=== PATIENT | male | born 1955 | race African-American/Black ===

== ENCOUNTER → 2016-08-21 | Outpatient (CLI) | payer MEDICAID ==
[2015-11-01 13:33] VITALS: BP 190/100
== END ==
LOC: LAB 08:08
PROVIDERS: ATTEND Nurse Practitioner Family
DX: F20.89 Other schizophrenia (principal)
CPT/HCPCS: 36415; 80164

== ENCOUNTER 2016-12-16 20:15 | Emergency (ER) | payer MEDICAID ==
[2016-12-16 20:22] VITALS: BMI 29.9
--- NOTE | 2016-12-16 20:31 | DR.GENAD ---
HPI - PCP Primary Care Physician: megan Arnold HPI Comment HPI Comment: NO FEVER. PAIN WORSE TONIGHT. - Complaint/Symptoms Chief Complaint Doctors Comments: NECK PAIN, SORE THROAT AND UPPER CHEST PAIN. ALSO LT CLAVICLE PAIN. Chief Complaint:: neck pain - Nurses notes reviewed Nurses Notes Review: Yes - Source History Provided: Patient - Mode of Arrival Mode of Arrival: Ambulatory - Timing Onset of Chief Complaint: 11/16/16 Came on: Suddenly - Duration Duration: Constant Duration: Days - Severity Severity: Moderate PMH - PMH Past Medical History: Yes Past Medical History: Coronary Artery Disease, Diabetes, Hypertension, Seizures Past Medical History Comment: family states he is on mental health medications Past Surgical History: No - Family History History of Family Medical Conditions: Yes Family Medical History: Diabetes Mellitus, Cancer, [place], Coronary Artery Disease, Heart Failure, Sudden Cardiac , Hypertension - Social History Does patient currently use any type of tobacco product: Yes Have you used tobacco products in the last 12 months: No Type of Tobacco Use: Smokeless Does any household member use tobacco: No Alcohol Use: None Do you use any recreational Drugs:: No Lives With: Family Lives Where: Home - infectious screening In the last 2 months have you had wt loss of >10#?: NO Have you had fever, night sweats or hemotysis?: No Have you traveled outside the country in the last 6 months?: No Isolation: Standard ROS - Review of Systems Constitutional: No Symptoms Reported Eyes: No Symptoms Reported ENTM: Throat Pain. negative: Ear Pain, Nose Discharge, Nose Congestion Respiratoy: Non-Productive Cough. negative: Short of Breath, Wheezing, Hemoptysis Cardiovascular: Chest Pain, Other (UPPER CHST PAIN) Gastrointestinal/Abdominal: No Symptoms Reported Genitourinary: No Symptoms Reported Neurological: No Symptoms Reported Musculoskeletal: Neck Pain, Chest wall Integumentary: No Symptoms Reported Hematologic/Lymphatic: No Symptoms Reported Endocrine: No Symptoms Reported All Other Systems: Reviewed and Negative PE - Vital Signs Vitals: Temperature 98.7 F Pulse Rate [Right] 77 Pulse Rate 115 Respiratory Rate 16 Blood Pressure [Left Arm] 132/76 Blood Pressure [Right Arm] 160/100 Blood Pressure 132/78 O2 Sat by Pulse Oximetry 100 - General Limitations: No Limitations General Appearance: Alert - Head Head Exam: Normal Inspection - Eyes Eye exam: Normal Appearance - ENT ENT Exam: Normal External Ear Exam External Ear Exam: Normal External Inspection TM/Canal Exam: Bilateral Normal Nose Exam: Normal Nose Exam Mouth Exam: Normal Inspection Throat Exam: Tonsillar Erythema - Neck Neck Exam: Trachea Midline, Tenderness (LOWER LEFT NEDK AND LT CLAVICLE.) - Chest Chest Inspection: Symmetric Chest Wall Rise - Respiratory Respiratory Exam: Normal Lung Sounds Bilat Respiratory Exam: Bilateral Clear to Auscultation - Cardiovascular Cardiovascular Exam: Regular Rate, Normal Rhythm, Normal Heart Sounds - Abdominal Exam Abdominal Exam: Normal Bowel Sounds, Soft. negative: Tenderness - Extremities Extremities Exam: Normal Inspection - Back Back Exam: Normal Inspection - Neurologic Neurological Exam: Alert, Oriented X3 - Psychiatric Psychiatric Exam: Normal Affect, Normal Mood - Skin Skin Exam: Normal Color MDM - Differential Diagnosis Differential Diagnosis: NECK PAIN, UPPER CHEST PAIN, STREP THROAT, ARTHRITIS Course - Treatment Treatment: SEE ORDERS. IM TORADOL, PAIN IMPROVE. - Reevaluation 1st: Improved - Education/Counseling Education/Counseling: Patient, Education Educated On: Treatment, Diagnosis, Needs for Follow Up ROR - Labs Reviewed Laboratory Results Reviewed?: Yes Laboratory: Streptococcus Screen Positive (NEGATIVE) A 12/16/16 20:44 - XRAY XRAY Interpreted by: Radiologist XRAY Findings: REPORT DISCUSS WITH PATIENT. - Diagnosis Discharge Problem: Strep throat, Neck pain DJD (degenerative joint disease) Qualifiers: Osteoarthritis location: multiple joints Osteoarthritis type: unspecified Qualified Code(s): M15.9 - Polyosteoarthritis, unspecified - Discharge Plan Disposition: HOME, SELF-CARE Condition: Stable Prescriptions: Amoxicillin [Amoxil 875 mg] 875 mg PO Q12H #20 tab Ibuprofen [MOTRIN TAB 800 MG *] 800 mg PO Q8H PRN #20 tab PRN Reason: Pain/Inflammation - Follow ups/Referrals Follow ups/Referrals: Edi MILLAN [Primary Care Provider] - 3 days - Instructions Instructions: Strep Throat, [id number], Degenerative Disk Disease, Smokeless Tobacco Use Additional Instructions: RETURN TO ED IF WORSE.
[2016-12-16] MEDS ORDERED: TORADOL 60 MG VIAL IM ONE (20:41)
[2016-12-16] MEDS ORDERED: TORADOL 60 MG VIAL ONE (20:46)
--- NOTE | 2016-12-16 21:25 | RAD ---
HISTORY: Neck pain with no trauma Study: Five view cervical spine Comparison: None Findings: AP and lateral radiographs of the cervical spine demonstrate normal alignment from the craniocervical junction to the level of T1. Degenerative disc changes are noted throughout the cervical spine with anterior osteophytes at all levels and joint space narrowing most notably at C5-6.. No prevertebral soft tissue swelling can be identified. The odontoid appears intact. The lateral masses of C1 align with the body of C2. IMPRESSION: 1. Advanced degenerative changes as above. Consider follow-up MRI if symptoms persist. Reported By:
--- NOTE | 2016-12-16 21:27 | RAD ---
HISTORY: Chest pain Study: Single-view chest Comparison: None Findings: The trachea is midline. The cardiac silhouette is unremarkable. The lungs are clear without focal i nfiltrate or effusion. The bony thorax is unremarkable. IMPRESSION: 1. No acute cardiopulmonary disease. Reported By:
[2016-12-16] MEDS ORDERED: AMOXIL CAP 500 MG PO ONE ×2 (21:41→21:42)
[2016-12-16 21:53] VITALS: BP 132/76
== END 2016-12-16 21:50 | disposition home or self-care (01) ==
LOC: ER 20:15
DX: M54.2 Cervicalgia (principal); J02.0 Streptococcal pharyngitis; M15.9 Polyosteoarthritis, unspecified
CPT/HCPCS: 71010; 72050; 87880; 96372; 99282; 99283; J1885

== ENCOUNTER → 2017-04-11 | Outpatient (CLI) | payer MEDICAID ==
[2017-04-11 12:26] LABS: BASOPHILS % (AUTO) 0.9 % (0.2-1.0); EOSINOPHILS % (AUTO) 0.6 % (0.9-2.9); HEMATOCRIT 43.2 % (42.0-54.0); HEMOGLOBIN 14.5 g/dL (13.5-18.0); LYMPHOCYTES # (AUTO) 1.8 X10^3/uL (1.3-2.9); MEAN CORPUSCULAR HEMOGLOBIN 30.3 pg (27.0-34.0); MEAN CORPUSCULAR HGB CONC 33.5 g/dL (33.0-35.0); MEAN CORPUSCULAR VOLUME 90.5 fL (80.0-100.0); MEAN PLATELET VOLUME 8.1 fL (7.4-11.0); MONOCYTES # (AUTO) 0.8 x10^3/uL (0.3-0.8); MONOCYTES % (AUTO) 17.3 % (0.0-13.0); NEUTROPHILS # (AUTO) 2.1 x10^3/uL (2.2-4.8); NEUTROPHILS % (AUTO) 44.2 % (42.0-75.0); PLATELET COUNT 171 X10^3/uL (150.0-450.0); RED BLOOD COUNT 4.77 X10^6/uL (4.7-6.0); RED CELL DISTRIBUTION WIDTH 14.9 % (11.6-16.5); WHITE BLOOD COUNT 4.8 X10^3/uL (3.6-10.0)
[2017-04-11 12:49] LABS: VALPROIC ACID 68.1 ug/mL (50-100)
[2017-04-11 12:54] LABS: ALANINE AMINOTRANSFERASE 33 Units/L (12-78); ALBUMIN 3.5 g/dL (3.4-5.0); ALKALINE PHOSPHATASE 34 Units/L (46-116); ASPARTATE AMINO TRANSFERASE 25 Units/L (15-37); BLOOD UREA NITROGEN 17 mg/dL (7-18); CALCIUM 9.5 mg/dL (8.5-10.1); CHLORIDE 101 mmol/L (98-107); COR NA(FOR HYPERGLY) 140 mmol/L (136-145); CREATININE 1.97 mg/dL (0.70-1.30); SODIUM 137 mmol/L (136-145); TOTAL PROTEIN 8.6 g/dL (6.4-8.2); TSH (3RD GENERATION) 2.089 uIU/mL (0.358-3.74); eGFR BLACK RACES 44 (>60); eGFR NON BLACK RACES 37 (>60)
== END ==
LOC: LAB 12:01
PROVIDERS: ATTEND Nurse Practitioner Family
DX: Z79.899 Other long term (current) drug therapy (principal)
CPT/HCPCS: 36415; 80053; 80164; 84443; 85025

== ENCOUNTER 2021-05-17 08:49 | Inpatient (IN) ==
[2021-05-17] MEDS ORDERED: CARDIZEM INJ 50 MG VIAL ONE (08:56)
[2021-05-17] MEDS ORDERED: CARDIZEM INJ 50 MG VIAL IVP ONE ×2 (09:01→09:32)
[2021-05-17 09:07] LABS: BASOPHILS % (AUTO) 0.3 % (0.2-1.0); EOSINOPHILS % (AUTO) 0.1 % (0.9-2.9); HEMATOCRIT 27.2 % (42.0-54.0); HEMOGLOBIN 9.2 g/dL (13.5-18.0); LYMPHOCYTES # (AUTO) 0.8 X10^3/uL (1.3-2.9); MEAN CORPUSCULAR HEMOGLOBIN 28.7 pg (27.0-34.0); MEAN CORPUSCULAR HGB CONC 33.8 g/dL (33.0-35.0); MEAN CORPUSCULAR VOLUME 84.7 fL (80.0-100.0); MEAN PLATELET VOLUME 6.4 fL (7.4-11.0); MONOCYTES # (AUTO) 1.1 x10^3/uL (0.3-0.8); MONOCYTES % (AUTO) 7.3 % (0.0-13.0); NEUTROPHILS # (AUTO) 13.2 x10^3/uL (2.2-4.8); NEUTROPHILS % (AUTO) 87.3 % (42.0-75.0); RED BLOOD COUNT 3.21 X10^6/uL (4.7-6.0); RED CELL DISTRIBUTION WIDTH 15.9 % (11.6-16.5); WHITE BLOOD COUNT 15.2 X10^3/uL (3.6-10.0)
--- NOTE | 2021-05-17 09:18 | RAD ---
HISTORYChest painSTUDYChest AP portableCOMPARISONNoneFINDINGSHeart is minimally enlarged. No congestive heart failure is noted. No acute alveolar infiltrates or pleural effusions are identified. Bony thorax is unremarkable.IMPRESSIONNo significant abnormality identifiedElectronically signed by: ELROY THOMAS (May 17, 2021 09:17:27)
[2021-05-17 09:28] LABS: ALANINE AMINOTRANSFERASE 12 Units/L (12-78); ALKALINE PHOSPHATASE 91 Units/L (46-116); ASPARTATE AMINO TRANSFERASE 14 Units/L (15-37); BLOOD UREA NITROGEN 9 mg/dL (7-18); CALCIUM 8.1 mg/dL (8.5-10.1); CARBON DIOXIDE 25.1 mmol/L (21-32); CHLORIDE 99 mmol/L (98-107); CKMB % 1.1 % (<4); COR CA(FOR HYPOALB) 9.7 mg/dL (8.5-10.1); CREATINE KINASE 88 Units/L (39-308); CREATINE KINASE MB < 1.0 ng/mL (0-4.0); CREATININE 0.57 mg/dL (0.70-1.30); MAGNESIUM 1.8 mg/dL (1.7-2.9); SODIUM 133 mmol/L (136-145); TOTAL PROTEIN 7.3 g/dL (6.4-8.2); eGFR NON BLACK RACES > 60 (>60)
--- NOTE | 2021-05-17 09:47 | DR.GENAD ---
HPI Time Seen Time Seen by Provider: 05/17/21 09:12 PCP Primary Care Physician: Yvonne HPI Comment HPI Comment: A 66 y/o male presssenting via EMS with c/o rapid HR. He denies SOB or C/P. He is not saying much but speaks few words. Complaint/Symptoms Chief Complaint:: EMS states caregiver called 911 due to patient having elevated heart rate. Pt has history of AFIB. Pt c/o pain to sacral area. Bleeding noted from wound. Pt answers some questions but will not answer every question. Limited history obtained at this time. COVID-19 Coronavirus risk:travel/contact w/high risk person: No Has patient experienced Coronavirus symptoms: No Nurses notes reviewed Nurses Notes Review: Yes Source History Provided: Patient and EMS Mode of Arrival Mode of Arrival: Stretcher Timing Onset of Chief Complaint: 05/17/21 PMH PMH Past Medical History: Yes Past Medical History: Diabetes and Hypertension Past Medical History Comment: AFIB Past Surgical History: Yes Surgical History: No History Past Surgical History Comment: amputation to bilateral legs Family History History of Family Medical Conditions: Yes Family Medical History: Diabetes Mellitus Social History Do you use any recreational Drugs:: No Travel Risk Coronavirus risk:travel/contact w/high risk person: No Has patient experienced Coronavirus symptoms: No Infectious screening In the last 2 months have you had wt loss of >10#?: NO Have you had fever, night sweats or hemotysis?: No Have you traveled outside the country in the last 6 months?: No Isolation: Standard ROS Review of Systems Constitutional: No Symptoms Reported Eyes: No Symptoms Reported ENTM: No Symptoms Reported Respiratoy: No Symptoms Reported Cardiovascular: Palpitations Gastrointestinal/Abdominal: No Symptoms Reported Genitourinary: No Symptoms Reported Neurological: No Symptoms Reported Musculoskeletal: No Symptoms Reported Integumentary: No Symptoms Reported Hematologic/Lymphatic: No Symptoms Reported Endocrine: No Symptoms Reported Psychiatric: No Symptoms Reported PE Vital Signs Vitals: Temperature 99.8 F Pulse Rate 154 Respiratory Rate 24 Blood Pressure [Left Arm] 158/76 Blood Pressure [Right Arm] 172/93 Blood Pressure 162/107 O2 Sat by Pulse Oximetry 100 General Limitations: No Limitations General Appearance: Alert and In No Apparent Distress Head Head Exam: Normal Inspection, Atraumatic and Normocephalic Eyes Eye exam: Normal Appearance, PERRL and EOMI ENT ENT Exam: Normal Exam, Normal Oropharynx, Normal External Ear Exam and TM's Normal Bilaterally Neck Neck Exam: Normal Inspection, Full ROM and Trachea Midline Chest Chest Inspection: Normal Inspection and Symmetric Chest Wall Rise Respiratory Respiratory Exam: Normal Lung Sounds Bilat Cardiovascular Cardiovascular Exam: Regular Rate, Normal Rhythm, Normal Heart Sounds, +S1 and +S2 Abdominal Exam Abdominal Exam: Normal Inspection, Normal Bowel Sounds and Soft Extremities Extremities Exam: Full ROM and Other (s/p Rt. AKA and Lt. BKA. ) Back Back Exam: Normal Inspection and Full ROM Neurologic Neurological Exam: Alert and Oriented X3 Psychiatric Psychiatric Exam: Normal Affect, Normal Mood and Depressed Skin Skin Exam: Other (moderate side decub on Lt. buttock.) COURSE Reevaluation 1st: Improved Education/Counseling Education/Counseling: Patient, Family, Education and Counseling Educated On: Treatment, Diagnosis, Prognosis and Needs for Follow Up Critical Care Notes Total Time (mins): 30 Critical Diagnosis: Paroxysmal SVT, Uncontrolled HTN Critical Interventions: Administration of IV Cardizem Bolus, supplemental Oxygen, diagnostic tests, Cardizem drip ROR Labs Reviewed Result Diagrams: 05/17/21 08:59 05/17/21 08:59 Laboratory: WBC 15.2 X10^3/uL (3.6-10.0) H 05/17/21 08:59 RBC 3.21 X10^6/uL (4.7-6.0) L 05/17/21 08:59 Hgb 9.2 g/dL (13.5-18.0) L 05/17/21 08:59 Hct 27.2 % (42.0-54.0) L 05/17/21 08:59 MCV 84.7 fL (80.0-100.0) 05/17/21 08:59 MCH 28.7 pg (27.0-34.0) 05/17/21 08:59 MCHC 33.8 g/dL (33.0-35.0) 05/17/21 08:59 RDW 15.9 % (11.6-16.5) 05/17/21 08:59 Plt Count 259 X10^3/uL (150.0-450.0) 05/17/21 08:59 MPV 6.4 fL (7.4-11.0) L 05/17/21 08:59 Neut % (Auto) 87.3 % (42.0-75.0) H 05/17/21 08:59 Lymph % (Auto) 5.0 % (21.0-51.0) L 05/17/21 08:59 [place] % (Auto) 7.3 % (0.0-13.0) 05/17/21 08:59 Eos % (Auto) 0.1 % (0.9-2.9) L 05/17/21 08:59 Baso % (Auto) 0.3 % (0.2-1.0) 05/17/21 08:59 Neut # (Auto) 13.2 x10^3/uL (2.2-4.8) H 05/17/21 08:59 Lymph # (Auto) 0.8 X10^3/uL (1.3-2.9) L 05/17/21 08:59 [place] # (Auto) 1.1 x10^3/uL (0.3-0.8) H 05/17/21 08:59 Eos # (Auto) 0.0 x10^3/uL (0.0-0.2) 05/17/21 08:59 Baso # (Auto) 0.0 X10^3/uL (0.0-0.1) 05/17/21 08:59 Absolute Nucleated RBC 0.0 /100WBC 05/17/21 08:59 PT 17.4 SECONDS (11.8-14.3) 05/17/21 08:59 INR Target Range - 05/17/21 08:59 INR 1.50 (0.8-1.3) H 05/17/21 08:59 APTT 54.7 SECONDS (22.9-36.5) H 05/17/21 08:59 PTT Comment - 05/17/21 08:59 Sodium 133 mmol/L (136-145) L 05/17/21 08:59 Corrected Sodium TNP 05/17/21 08:59 Potassium 3.6 mmol/L (3.5-5.1) 05/17/21 08:59 Chloride 99 mmol/L (98-107) 05/17/21 08:59 Carbon Dioxide 25.1 mmol/L (21-32) 05/17/21 08:59 BUN 9 mg/dL (7-18) 05/17/21 08:59 Creatinine 0.57 mg/dL (0.70-1.30) L 05/17/21 08:59 Est GFR (MDRD) Af Amer > 60 (>60) 05/17/21 08:59 Est GFR (MDRD) Non-Af > 60 (>60) 05/17/21 08:59 Glucose 72 mg/dL (65-99) 05/17/21 08:59 Lactic Acid 1.0 mmol/L (0.4-2.0) 05/17/21 09:26 Calcium 8.1 mg/dL (8.5-10.1) L 05/17/21 08:59 Corrected Calcium 9.7 mg/dL (8.5-10.1) 05/17/21 08:59 Magnesium 1.8 mg/dL (1.7-2.9) 05/17/21 08:59 Total Bilirubin 0.40 mg/dL (0.2-1.0) 05/17/21 08:59 AST 14 Units/L (15-37) L 05/17/21 08:59 ALT 12 Units/L (12-78) 05/17/21 08:59 Alkaline Phosphatase 91 Units/L (46-116) 05/17/21 08:59 Creatine Kinase 88 Units/L (39-308) 05/17/21 08:59 CK-MB (CK-2) < 1.0 ng/mL (0-4.0) 05/17/21 08:59 CK/CKMB % Calc 1.1 % (<4) 05/17/21 08:59 Troponin I High Sens 19.3 ng/L (4.0-60.0) 05/17/21 08:59 Total Protein 7.3 g/dL (6.4-8.2) 05/17/21 08:59 Albumin 2.0 g/dL (3.4-5.0) L 05/17/21 08:59 Globulin 5.3 g/dL (2.5-4.5) H 05/17/21 08:59 Albumin/Globulin Ratio 0.4 Ratio (1.1-2.1) L 05/17/21 08:59 TSH 3rd Generation 0.594 uIU/mL (0.358-3.74) 05/17/21 09:26 Digoxin 0.39 ng/mL (0.9-2) L 05/17/21 09:26 Opioid Opioid Risk Tool Age (Alec box if 16-45): No History of Preadolescent Sexual Abuse: No Total: 0 Total Score Risk Category: Low Risk Copyright: [facility] predicting aberrant behaviors Diagnosis Discharge Problem: Paroxysmal SVT (supraventricular tachycardia), Uncontrolled hypertension Diabetes mellitus Qualifiers: Diabetes mellitus type: type 2 Diabetes mellitus bed bug exterminator insulin use: without bed bug exterminator use Diabetes mellitus complication status: with circulatory complication Diabetes mellitus complication detail: with other circulatory complications Qualified Code(s): E11.59 - Type 2 diabetes mellitus with other circulatory complications Atrial fibrillation Qualifiers: Atrial fibrillation type: paroxysmal Qualified Code(s): I48.0 - Paroxysmal atrial fibrillation ADDITIONAL NOTES Additional Notes Additional Notes: Name: SHANNAN DUMONT#: [id number]: [id number] : 1955Sex: MLocation: ER Order Number(s): [id number](s):CHEST, 1 VIEW Ordering Physician: JESICA CHAMBERS Primary Care: Ellen Walls Service Date: 05/17/21 Service Time: 08 HISTORY Chest pain STUDY Chest AP portable COMPARISON None FINDINGS Heart is minimally enlarged. No congestive heart failure is noted. No acute alveolar infiltrates or pleural effusions are identified. Bony thorax is unremarkable. IMPRESSION No significant abnormality identified Electronically signed by: ELROY THOMAS (May 17, 2021 09:17:27) Report Electronically signed: 05/17/21917 CC: Jesica Chambers
[2021-05-17] MEDS: CARDIZEM INJ 125 MG VIAL 125 MG in NS 100 ML IV 100 ML IV PRN ×2 (09:48→17:12)
[2021-05-17 10:11] LABS: TSH (3RD GENERATION) 0.594 uIU/mL (0.358-3.74)
[2021-05-17 12:18] VITALS: BMI 19.8
[2021-05-17] MEDS ORDERED: LANOXIN INJ IVP STA (13:49)
[2021-05-17] MEDS ORDERED: CARDIZEM CD 180 MG 24-HR PO STA (13:52)
[2021-05-17] MEDS ORDERED: NS 1,000 ML IV 1,000 ML IV ONE (13:55)
[2021-05-17] MEDS ORDERED: LANOXIN INJ IVP SCH (14:00)
[2021-05-17] MEDS ORDERED: LANOXIN INJ IVP ONE (14:32)
--- NOTE | 2021-05-17 15:34 | DR.H&P ---
H&P History & Physical for Day of: H&P Date: 05/17/21 Chief Complaint Chief Complaint: elevated HR Allergies Allergies Allergy/AdvReac Type Severity Reaction Status Date / Time No Known Drug Allergies Allergy Verified 12/21/19 12:19 History of Present Illness History of Present Illness: Mr Sanchez is a 66y/o male with a PMH of diabetes, atrial fibrillation, bilateral above knee amputation, HTN and mood disorder presented due to elevated HR. Patient's home health nurse noticed patient's HR to be elevated so he was sent to the ER. Patient is not able to provide any history. He answered some direct questions by nodding head or saying yes/no. Patient's history was obtained from patient's . She states he has been doing well and not feeling sick. He did see wound care on Saturday for his sacral wound and was told it is looking better. She states it has been draining and has a foul odor. Patient has had this wound for a while now and sees wound care in [facility]. In the ER, patient was noted to be in atrial fibrillation with RVR. He was given multiple doses of cardizem and digoxin. He was started on Cardizem drip. Labs/imaging reviewed Plan: admit to telemetry, monitor HR. Consult Dr Zapata for further recommendations. Wean cardizem if HR stays below 100. Patient is currently on max dose. He denies any sx. Resume home medications. Echo pending. Order wound Cx. Monitor AM labs/imaging. Past Medical History Past Medical History: Diabetes, Dyslipidemia, Hypertension and Schizophrenia Additional Medical History: Atrial fibrillation Past Surgical History Surgical History: Other Additional Surgical History: b/l knee amputation Family History Family Medical History: Diabetes Mellitus Social History Does patient currently use any type of tobacco product: Yes (Occasional Dip) Have you used tobacco products in the last 12 months: Yes (Dip) Alcohol Use: None Prescription drug monitoring program results: PDMP reviewed and no concerns identified Medications Home Medications: No Known Drug Allergies Allergy (Verified 12/21/19 12:19) CONTINUE taking the following medications apixaban [Eliquis] 5 mg PO BID 05/17/21 [History] clopidogrel 75 mg PO DAILY 05/17/21 [History] digoxin 125 mcg PO DAILY 05/17/21 [History] fluphenazine HCl 10 mg PO BID 05/17/21 [History] hydralazine 100 mg PO DAILY 05/17/21 [History] lisinopril 20 mg PO DAILY 05/17/21 [History] multivitamin [One-A-Day Essential] 1 tab PO QAM 05/17/21 [History] risperidone 0.5 mg PO BID 05/17/21 [History] Labs Result Diagrams: 05/18/21 04:00 05/18/21 04:00 Labs: Laboratory WBC 15.2 X10^3/uL (3.6-10.0) H 05/17/21 08:59 RBC 3.21 X10^6/uL (4.7-6.0) L 05/17/21 08:59 Hgb 9.2 g/dL (13.5-18.0) L 05/17/21 08:59 Hct 27.2 % (42.0-54.0) L 05/17/21 08:59 MCV 84.7 fL (80.0-100.0) 05/17/21 08:59 MCH 28.7 pg (27.0-34.0) 05/17/21 08:59 MCHC 33.8 g/dL (33.0-35.0) 05/17/21 08:59 RDW 15.9 % (11.6-16.5) 05/17/21 08:59 Plt Count 259 X10^3/uL (150.0-450.0) 05/17/21 08:59 MPV 6.4 fL (7.4-11.0) L 05/17/21 08:59 Neut % (Auto) 87.3 % (42.0-75.0) H 05/17/21 08:59 Lymph % (Auto) 5.0 % (21.0-51.0) L 05/17/21 08:59 [place] % (Auto) 7.3 % (0.0-13.0) 05/17/21 08:59 Eos % (Auto) 0.1 % (0.9-2.9) L 05/17/21 08:59 Baso % (Auto) 0.3 % (0.2-1.0) 05/17/21 08:59 Neut # (Auto) 13.2 x10^3/uL (2.2-4.8) H 05/17/21 08:59 Lymph # (Auto) 0.8 X10^3/uL (1.3-2.9) L 05/17/21 08:59 [place] # (Auto) 1.1 x10^3/uL (0.3-0.8) H 05/17/21 08:59 Eos # (Auto) 0.0 x10^3/uL (0.0-0.2) 05/17/21 08:59 Baso # (Auto) 0.0 X10^3/uL (0.0-0.1) 05/17/21 08:59 Absolute Nucleated RBC 0.0 /100WBC 05/17/21 08:59 PT 17.4 SECONDS (11.8-14.3) 05/17/21 08:59 INR Target Range - 05/17/21 08:59 INR 1.50 (0.8-1.3) H 05/17/21 08:59 APTT 54.7 SECONDS (22.9-36.5) H 05/17/21 08:59 PTT Comment - 05/17/21 08:59 D-Dimer 1.05 ug/ml (0.0-0.57) H* 05/17/21 08:59 Sodium 133 mmol/L (136-145) L 05/17/21 08:59 Corrected Sodium TNP 05/17/21 08:59 Potassium 3.6 mmol/L (3.5-5.1) 05/17/21 08:59 Chloride 99 mmol/L (98-107) 05/17/21 08:59 Carbon Dioxide 25.1 mmol/L (21-32) 05/17/21 08:59 BUN 9 mg/dL (7-18) 05/17/21 08:59 Creatinine 0.57 mg/dL (0.70-1.30) L 05/17/21 08:59 Est GFR (MDRD) Af Amer > 60 (>60) 05/17/21 08:59 Est GFR (MDRD) Non-Af > 60 (>60) 05/17/21 08:59 Glucose 72 mg/dL (65-99) 05/17/21 08:59 POC Glucose (mg/dL) 89 mg/dL (65-99) 05/17/21 12:03 Lactic Acid 1.0 mmol/L (0.4-2.0) 05/17/21 09:26 Calcium 8.1 mg/dL (8.5-10.1) L 05/17/21 08:59 Corrected Calcium 9.7 mg/dL (8.5-10.1) 05/17/21 08:59 Magnesium 1.8 mg/dL (1.7-2.9) 05/17/21 08:59 Total Bilirubin 0.40 mg/dL (0.2-1.0) 05/17/21 08:59 AST 14 Units/L (15-37) L 05/17/21 08:59 ALT 12 Units/L (12-78) 05/17/21 08:59 Alkaline Phosphatase 91 Units/L (46-116) 05/17/21 08:59 Creatine Kinase 88 Units/L (39-308) 05/17/21 08:59 CK-MB (CK-2) < 1.0 ng/mL (0-4.0) 05/17/21 08:59 CK/CKMB % Calc 1.1 % (<4) 05/17/21 08:59 Troponin I High Sens 19.3 ng/L (4.0-60.0) 05/17/21 08:59 Total Protein 7.3 g/dL (6.4-8.2) 05/17/21 08:59 Albumin 2.0 g/dL (3.4-5.0) L 05/17/21 08:59 Globulin 5.3 g/dL (2.5-4.5) H 05/17/21 08:59 Albumin/Globulin Ratio 0.4 Ratio (1.1-2.1) L 05/17/21 08:59 TSH 3rd Generation 0.594 uIU/mL (0.358-3.74) 05/17/21 09:26 Digoxin 0.39 ng/mL (0.9-2) L 05/17/21 09:26 SARS CoV-2 RNA Rapid GIBSON Negative (NEGATIVE) 05/17/21 10:29 Review of Systems Constitutional: No Symptoms Reported Eyes: No Symptoms Reported ENT: No Symptoms Reported Respiratory: No Symptoms Reported Cardiovascular: No Symptoms Reported Gastrointestinal: No Symptoms Reported Genitourinary: No Symptoms Reported Musculoskeletal: No Symptoms Reported Skin: No Symptoms Reported Neurological: No Symptoms Reported Physical Exam Vital Signs: Temperature 98.3 F Pulse Rate [Left Radial] 150 Pulse Rate 100 Respiratory Rate 25 Blood Pressure [Left Arm] 156/84 Blood Pressure [Right Arm] 172/93 Blood Pressure 144/77 O2 Sat by Pulse Oximetry 99 Oriented: Normal, Person and Place Eyes: Normal Ear: Normal Nose: Normal Throat: Normal Respiratory: Diminished Throughout Cardiovascular: Tachycardia and Irregular : Other (sacral wound noted, dressing intact ) Auscultation: Bowel Sounds: Normal Palpation: Normal Tenderness: Normal Skin: Decreased Turgur Musculoskeletal: Deformity (b/l BKA ) Psychiatric: Normal Mood Description: Calm Affect: Flat Speech Pattern: Clear and Delayed Assessment/Plan (1) Atrial fibrillation with rapid ventricular response: Status: Acute (2) Diabetes mellitus: Qualifiers: Diabetes mellitus complication detail: with other circulatory compli cations Diabetes mellitus complication status: with circulatory complication Diabetes mellitus tank terminal gauger insulin use: without jail use Diabetes mellitus type: type 2 Qualified Code(s): E11.59 - Type 2 diabetes mellitus with other circulatory complications Status: Acute (3) Anemia: Qualifiers: Anemia type: other cause Other causes of anemia: other cause, not classified Qualified Code(s): D64.89 - Other specified anemias Status: Acute (4) S/P bilateral above knee amputation: Status: Acute (5) Sacral wound: Qualifiers: Encounter type: sequela Qualified Code(s): S31.000S - Unspecified open wound of lower back and pelvis without penetration into retroperitoneum, sequela Status: Acute (6) DJD (degenerative joint disease): Qualifiers: Osteoarthritis location: multiple joints Osteoarthritis type: unspecified Qualified Code(s): M15.9 - Polyosteoarthritis, unspecified Status: Acute Review H&P Reviewed: Yes Patient was examined?: Yes
[2021-05-17 15:39] LABS: BILIRUBIN,URINE NEGATIVE (NEGATIVE); BLOOD/HEMOGLOBIN,URINE 1+ (NEGATIVE); GLUCOSE, URINE NEGATIVE (NEGATIVE); KETONES,URINE 2+ (NEGATIVE); LEUKOCYTE ESTERASE ,URINE NEGATIVE (NEGATIVE); NITRITES,URINE NEGATIVE (NEGATIVE); PROTEIN,URINE 2+ (NEGATIVE); UROBILINOGEN,URINE 2+ (NORMAL)
[2021-05-17 15:50] LABS: APPEARANCE,URINE CLEAR (CLEAR); COLOR,URINE AMBER (YELLOW)
[2021-05-17 15:54] LABS: BACTERIA,URINE TRACE /HPF (NEGATIVE); SQUAMOUS EPITHELIAL CELL,UR RARE /HPF (NEGATIVE)
[2021-05-17 15:55] LABS: SPERM,URINE RARE /HPF (NEGATIVE)
--- NOTE | 2021-05-17 15:56 | CT ---
CTA CHESTCLINICAL INDICATION: ELEVATED DDIMERPROCEDURE: Non gated axial images of the chest were obtained with intravenous contrast according to pulmonary embolism protocol. MIPS were reconstructed Dose reduction techniques including Automated Exposure Control (AEC) and adjustment of mA and kV were utlized.COMPARISON:NoneFINDINGS:No evidence of a pulmonary embolism to the level of the segmental pulmonary arteries.Cardiomegaly and severe coronary calcification. No pericardial effusion . No suspicious mediastinal or axillary lymph nodes . No focal consolidations, pleural effusions or pneumothorax.Scarring of the lung bases.Airways are patent . No suspicious pulmonary nodules or masses .Limited images of the upper abdomen are unremarkable.No aggressive osseous lesions.IMPRESSION:1. No evidence of pulmonary embolism.Electronically signed by: RANDAL CABEZAS (May 17, 2021 15:55:53)
[2021-05-17 17:46] LABS: CKMB % 0.3 % (<4); CREATINE KINASE MB < 1.0 ng/mL (0-4.0)
[2021-05-17 17:47] LABS: CREATINE KINASE 369 Units/L (39-308)
[2021-05-17] MEDS: SNACK - Diabetic Appropriate PO SCH (20:16)
[2021-05-17] MEDS ORDERED: DEPAKOTE D.R. TAB PO ONE (20:18)
[2021-05-17] MEDS: APRESOLINE TAB 25 MG PO SCH (20:28)
[2021-05-17] MEDS: ELIQUIS PO SCH (20:28)
[2021-05-17] MEDS: DEPAKOTE D.R. TAB PO SCH (20:28)
[2021-05-17] MEDS: FLUPHENAZINE HCL 10 MG PO SCH (20:29)
[2021-05-17] MEDS: GLUCOPHAGE PO SCH (20:30)
[2021-05-17 22:51] LABS: CKMB % 1.2 % (<4); CREATINE KINASE 84 Units/L (39-308); CREATINE KINASE MB < 1.0 ng/mL (0-4.0)
[2021-05-18] MEDS ORDERED: CARDIZEM INJ 125 MG VIAL ONE (03:24)
[2021-05-18] MEDS ORDERED: NS 100 ML IV 100 ML ONE (03:57)
[2021-05-18] MEDS: CARDIZEM INJ 125 MG VIAL 125 MG in NS 100 ML IV 100 ML IV PRN (04:12)
[2021-05-18 04:51] LABS: BASOPHILS % (AUTO) 0.1 % (0.2-1.0); HEMATOCRIT 25.2 % (42.0-54.0); HEMOGLOBIN 8.5 g/dL (13.5-18.0); LYMPHOCYTES # (AUTO) 0.9 X10^3/uL (1.3-2.9); LYMPHOCYTES % (AUTO) 6.8 % (21.0-51.0); MEAN CORPUSCULAR HEMOGLOBIN 28.5 pg (27.0-34.0); MEAN CORPUSCULAR HGB CONC 33.6 g/dL (33.0-35.0); MEAN CORPUSCULAR VOLUME 84.7 fL (80.0-100.0); MEAN PLATELET VOLUME 6.9 fL (7.4-11.0); MONOCYTES % (AUTO) 7.2 % (0.0-13.0); NEUTROPHILS # (AUTO) 11.7 x10^3/uL (2.2-4.8); NEUTROPHILS % (AUTO) 85.9 % (42.0-75.0); RED BLOOD COUNT 2.98 X10^6/uL (4.7-6.0); RED CELL DISTRIBUTION WIDTH 15.8 % (11.6-16.5); WHITE BLOOD COUNT 13.6 X10^3/uL (3.6-10.0)
[2021-05-18 05:19] LABS: ALANINE AMINOTRANSFERASE 11 Units/L (12-78); ALBUMIN 1.7 g/dL (3.4-5.0); ALKALINE PHOSPHATASE 83 Units/L (46-116); ASPARTATE AMINO TRANSFERASE 23 Units/L (15-37); BLOOD UREA NITROGEN 6 mg/dL (7-18); CALCIUM 7.8 mg/dL (8.5-10.1); CARBON DIOXIDE 26.1 mmol/L (21-32); CHLORIDE 103 mmol/L (98-107); CHOL/HDL RATIO 3.3 (0.0-5.0); CHOLESTEROL 130 mg/dL (0-200); COR CA(FOR HYPOALB) 9.6 mg/dL (8.5-10.1); CREATININE 0.47 mg/dL (0.70-1.30); HDL CHOLESTEROL 40 mg/dL (40-60); SODIUM 137 mmol/L (136-145); TOTAL PROTEIN 6.6 g/dL (6.4-8.2); TRIGLYCERIDES 63 mg/dL (0-150); eGFR NON BLACK RACES > 60 (>60)
[2021-05-18] MEDS ORDERED: K-RIDER 10 MEQ/NS 100 ML 10 MEQ/100 ML BAG IV PRN (05:44)
[2021-05-18] MEDS ORDERED: KLOR-CON PO PRN (05:44)
[2021-05-18] MEDS ORDERED: POTASSIUM CHL 40 MEQ/NS 0.45% 500 ML IV PRN (05:44)
[2021-05-18] MEDS ORDERED: POTASSIUM CHL 60 MEQ/NS 0.45% 500 ML IV PRN (05:44)
[2021-05-18] MEDS ORDERED: MICRO K EXTEN CAP 10 MEQ PO PRN (05:44)
[2021-05-18] MEDS ORDERED: POTASSIUM CHLORIDE LIQ 20 MEQ UDC PO PRN (05:44)
[2021-05-18] MEDS ORDERED: NS 250 ML IV 250 ML IV ONE (06:19)
[2021-05-18] MEDS: MAGNESIUM SULFATE 1 GRAM/100 mL PREMIX 1 G/100 ML BAG IV PRN ×2 (06:19→08:53)
[2021-05-18] MEDS ORDERED: ZESTRIL TAB 20 MG ONE (08:34)
[2021-05-18] MEDS: ELIQUIS PO SCH ×2 (08:35→21:39)
[2021-05-18] MEDS: PROTONIX TAB 40 MG PO SCH (08:36)
[2021-05-18] MEDS: FLUPHENAZINE HCL 10 MG PO SCH ×2 (08:36→21:39)
[2021-05-18] MEDS: TAB-A-VITE PO SCH (08:37)
[2021-05-18] MEDS: K-DUR TAB 20 MEQ PO PRN ×2 (08:37→13:05)
[2021-05-18] MEDS: ZESTRIL TAB 20 MG PO SCH (08:39)
[2021-05-18] MEDS: APRESOLINE TAB 25 MG PO SCH ×2 (08:47→21:37)
[2021-05-18] MEDS ORDERED: PLAVIX PO SCH (09:00)
[2021-05-18] MEDS ORDERED: LANOXIN or DIGITEK PO SCH ×2 (09:00)
[2021-05-18] MEDS: ZOSYN VIAL 3.375 GRAMS 3.375 G in NS 100 ML IV 100 ML IV SCH ×3 (09:05→21:41)
[2021-05-18] MEDS: GLUCOPHAGE PO SCH ×2 (09:26→21:39)
[2021-05-18] MEDS: GLUCOTROL PO SCH (09:26)
--- NOTE | 2021-05-18 10:22 | PCM.PROG ---
Progress Note Progress Note for Day of Date of Exam: 05/18/21 Subjective Subjective: Patient seen at bedside, no events overnight. His HR has been better controlled, mostly 95-low 100s. He is currently on Cardizem at 5mg/hr. He denies any chest pain or SOB. He is resting in bed. Patient had CTA yesterday due to elevated d-dimer, negative for PE. Labs/imaging reviewed Plan: Wean Cardizem as tolerated to keep HR< 100. Follow Dr Zapata's recommendations with dose changed to Digoxin and Diltiazem PO. Echo pending. Follow wound cx. Start Zosyn. Dressing change daily. Continue home medications. Patient's psych med not available at hospital pharmacy so discussed with to bring that in. Monitor on telemetry. Check anemia panel. Follow AM labs. Past Medical Family Social History Past Med/Fam/Surg Hx: No changes since H&P Allergies: Allergies No Known Drug Allergies Allergy (Verified 12/21/19 12:19) Review of Systems ROS: No change since H&P Vital Signs and I&O's Vital Signs: Temperature 100.5 F Pulse Rate [Left Radial] 150 Pulse Rate 111 Respiratory Rate 20 Blood Pressure [Left Arm] 156/84 Blood Pressure [Right Arm] 172/93 Blood Pressure 166/79 O2 Sat by Pulse Oximetry 100 Intake and Output: Intake & Output 05/15/21 05/16/21 05/17/21 05/18/21 23:59 23:59 23:59 23:59 Intake Total 1477 / 1477 443 / 443 Output Total 1350 / 1350 250 / 250 Balance 127 / 127 193 / 193 Physical Exam Oriented: Unable to test Eyes: Normal Ear: Normal Nose: Normal Throat: Normal Cardiovascular: Tachycardia and Irregular : Other (sacral wound noted, dressing intact ) Auscultation: Bowel Sounds: Normal Tenderness: Normal Skin: Decreased Turgur Musculoskeletal: Deformity (b/l BKA ) Psychiatric: Normal Mood Description: Calm Affect: Flat Speech Pattern: Clear and Delayed Laboratory and Diagnostics Result Diagrams: 05/18/21 04:00 05/18/21 04:00 Labs: Laboratory WBC 13.6 X10^3/uL (3.6-10.0) H 05/18/21 04:00 RBC 2.98 X10^6/uL (4.7-6.0) L 05/18/21 04:00 Hgb 8.5 g/dL (13.5-18.0) L 05/18/21 04:00 Hct 25.2 % (42.0-54.0) L 05/18/21 04:00 MCV 84.7 fL (80.0-100.0) 05/18/21 04:00 MCH 28.5 pg (27.0-34.0) 05/18/21 04:00 MCHC 33.6 g/dL (33.0-35.0) 05/18/21 04:00 RDW 15.8 % (11.6-16.5) 05/18/21 04:00 Plt Count 236 X10^3/uL (150.0-450.0) 05/18/21 04:00 MPV 6.9 fL (7.4-11.0) L 05/18/21 04:00 Neut % (Auto) 85.9 % (42.0-75.0) H 05/18/21 04:00 Lymph % (Auto) 6.8 % (21.0-51.0) L 05/18/21 04:00 [place] % (Auto) 7.2 % (0.0-13.0) 05/18/21 04:00 Eos % (Auto) 0.0 % (0.9-2.9) L 05/18/21 04:00 Baso % (Auto) 0.1 % (0.2-1.0) L 05/18/21 04:00 Neut # (Auto) 11.7 x10^3/uL (2.2-4.8) H 05/18/21 04:00 Lymph # (Auto) 0.9 X10^3/uL (1.3-2.9) L 05/18/21 04:00 [place] # (Auto) 1.0 x10^3/uL (0.3-0.8) H 05/18/21 04:00 Eos # (Auto) 0.0 x10^3/uL (0.0-0.2) 05/18/21 04:00 Baso # (Auto) 0.0 X10^3/uL (0.0-0.1) 05/18/21 04:00 Absolute Nucleated RBC 0.0 /100WBC 05/18/21 04:00 PT 17.4 SECONDS (11.8-14.3) 05/17/21 08:59 INR Target Range - 05/17/21 08:59 INR 1.50 (0.8-1.3) H 05/17/21 08:59 APTT 54.7 SECONDS (22.9-36.5) H 05/17/21 08:59 PTT Comment - 05/17/21 08:59 D-Dimer 1.05 ug/ml (0.0-0.57) H* 05/17/21 08:59 Sodium 137 mmol/L (136-145) 05/18/21 04:00 Corrected Sodium TNP 05/18/21 04:00 Potassium 3.5 mmol/L (3.5-5.1) 05/18/21 04:00 Chloride 103 mmol/L (98-107) 05/18/21 04:00 Carbon Dioxide 26.1 mmol/L (21-32) 05/18/21 04:00 BUN 6 mg/dL (7-18) L 05/18/21 04:00 Creatinine 0.47 mg/dL (0.70-1.30) L 05/18/21 04:00 Est GFR (MDRD) Af Amer > 60 (>60) 05/18/21 04:00 Est GFR (MDRD) Non-Af > 60 (>60) 05/18/21 04:00 Glucose 80 mg/dL (65-99) 05/18/21 04:00 POC Glucose (mg/dL) 117 mg/dL (65-99) H 05/17/21 20:01 Lactic Acid 1.0 mmol/L (0.4-2.0) 05/17/21 09:26 Calcium 7.8 mg/dL (8.5-10.1) L 05/18/21 04:00 Corrected Calcium 9.6 mg/dL (8.5-10.1) 05/18/21 04:00 Magnesium 1.9 mg/dL (1.7-2.9) 05/18/21 04:00 Total Bilirubin 0.40 mg/dL (0.2-1.0) 05/18/21 04:00 AST 23 Units/L (15-37) 05/18/21 04:00 ALT 11 Units/L (12-78) L 05/18/21 04:00 Alkaline Phosphatase 83 Units/L (46-116) 05/18/21 04:00 Creatine Kinase 84 Units/L (39-308) 05/17/21 22:24 CK-MB (CK-2) < 1.0 ng/mL (0-4.0) 05/17/21 22:24 CK/CKMB % Calc 1.2 % (<4) 05/17/21 22:24 Troponin I High Sens 24.0 ng/L (4.0-60.0) 05/17/21 22:24 Total Protein 6.6 g/dL (6.4-8.2) 05/18/21 04:00 Albumin 1.7 g/dL (3.4-5.0) L 05/18/21 04:00 Globulin 4.9 g/dL (2.5-4.5) H 05/18/21 04:00 Albumin/Globulin Ratio 0.3 Ratio (1.1-2.1) L 05/18/21 04:00 Triglycerides 63 mg/dL (0-150) 05/18/21 04:00 Cholesterol 130 mg/dL (0-200) 05/18/21 04:00 LDL Cholesterol, Calc 77 mg/dL (0-100) 05/18/21 04:00 HDL Cholesterol 40 mg/dL (40-60) 05/18/21 04:00 Cholesterol/HDL Ratio 3.3 (0.0-5.0) 05/18/21 04:00 TSH 3rd Generation 0.594 uIU/mL (0.358-3.74) 05/17/21 09:26 Specimen Type Catherized urine 05/17/21 15:15 Urine Color [place] (YELLOW) 05/17/21 15:15 Urine Appearance Clear (CLEAR) 05/17/21 15:15 Urine pH 6.0 (5.0 - 8.0) 05/17/21 15:15 Ur Specific [place] 1.015 (1.000-1.030) 05/17/21 15:15 Urine Protein 2+ (NEGATIVE) 05/17/21 15:15 Urine Glucose (UA) Negative (NEGATIVE) 05/17/21 15:15 Urine Ketones 2+ (NEGATIVE) 05/17/21 15:15 Urine Occult Blood 1+ (NEGATIVE) 05/17/21 15:15 Urine Nitrite Negative (NEGATIVE) 05/17/21 15:15 Urine Bilirubin Negative (NEGATIVE) 05/17/21 15:15 Urine Urobilinogen 2+ (NORMAL) 05/17/21 15:15 Ur Leukocyte Esterase Negative (NEGATIVE) 05/17/21 15:15 Urine RBC 3-5 /HPF (0-3) A 05/17/21 15:15 Urine WBC 3-5 /HPF (0-5) 05/17/21 15:15 Ur Squamous Epith Cells Rare /HPF (NEGATIVE) 05/17/21 15:15 Urine Bacteria Trace /HPF (NEGATIVE) 05/17/21 15:15 Urine Sperm Rare /HPF (NEGATIVE) 05/17/21 15:15 Ur Culture Indicated? No/not indicated 05/17/21 15:15 Digoxin 0.39 ng/mL (0.9-2) L 05/17/21 09:26 SARS CoV-2 RNA Rapid GIBSON Negative (NEGATIVE) 05/17/21 10:29 Plan (1) Atrial fibrillation with rapid ventricular response: Status: Acute (2) Diabetes mellitus: Status: Acute Qualifiers: Diabetes mellitus complication detail: with other circulatory complications Diabetes mellitus complication status: with circulatory complication Diabetes mellitus fdc insulin use: without petroleum terminal plant operator use Diabetes mellitus type: type 2 Qualified Code(s): E11.59 - Type 2 diabetes mellitus with other circulatory complications (3) Anemia: Status: Acute Qualifiers: Anemia type: other cause Other causes of anemia: other cause, not classified Qualified Code(s): D64.89 - Other specified anemias (4) S/P bilateral above knee amputation: Status: Acute (5) Sacral wound: Status: Acute Qualifiers: Encounter type: sequela Qualified Code(s): S31.000S - Unspecified open wound of lower back and pelvis without penetration into retroperitoneum, sequela (6) DJD (degenerative joint disease): Status: Acute Qualifiers: Osteoarthritis location: multiple joints Osteoarthritis type: unspecified Qualified Code(s): M15.9 - Polyosteoarthritis, unspecified (7) Schizophrenia: Status: Acute Qualifiers: Schizophrenia type: other Qualified Code(s): F20.89 - Other schizophrenia
[2021-05-18] MEDS: CARDIZEM CD 180 MG 24-HR PO SCH (12:50)
[2021-05-18] MEDS: SNACK - Diabetic Appropriate PO SCH ×2 (20:30→21:37)
[2021-05-18] MEDS ORDERED: GLUCOPHAGE ONE (21:36)
[2021-05-18] MEDS ORDERED: DEPAKOTE D.R. TAB PO ONE (21:37)
[2021-05-18] MEDS: DEPAKOTE D.R. TAB PO SCH (21:38)
[2021-05-19] MEDS: TYLENOL 325 MG TAB PO PRN ×2 (01:55→09:08)
[2021-05-19 04:58] LABS: BASOPHILS % (AUTO) 0.2 % (0.2-1.0); HEMATOCRIT 24.7 % (42.0-54.0); HEMOGLOBIN 8.3 g/dL (13.5-18.0); LYMPHOCYTES # (AUTO) 0.6 X10^3/uL (1.3-2.9); LYMPHOCYTES % (AUTO) 4.5 % (21.0-51.0); MEAN CORPUSCULAR HEMOGLOBIN 28.2 pg (27.0-34.0); MEAN CORPUSCULAR HGB CONC 33.6 g/dL (33.0-35.0); MEAN CORPUSCULAR VOLUME 84.1 fL (80.0-100.0); MEAN PLATELET VOLUME 6.8 fL (7.4-11.0); MONOCYTES % (AUTO) 7.6 % (0.0-13.0); NEUTROPHILS # (AUTO) 11.7 x10^3/uL (2.2-4.8); NEUTROPHILS % (AUTO) 87.7 % (42.0-75.0); RED BLOOD COUNT 2.93 X10^6/uL (4.7-6.0); RED CELL DISTRIBUTION WIDTH 15.8 % (11.6-16.5); WHITE BLOOD COUNT 13.3 X10^3/uL (3.6-10.0)
[2021-05-19 05:05] LABS: BLOOD UREA NITROGEN 8 mg/dL (7-18); CALCIUM 7.9 mg/dL (8.5-10.1); CARBON DIOXIDE 24.2 mmol/L (21-32); CHLORIDE 104 mmol/L (98-107); CREATININE 0.58 mg/dL (0.70-1.30); SODIUM 138 mmol/L (136-145); eGFR NON BLACK RACES > 60 (>60)
[2021-05-19] MEDS: ZOSYN VIAL 3.375 GRAMS 3.375 G in NS 100 ML IV 100 ML IV SCH ×3 (05:49→21:30)
[2021-05-19] MEDS ORDERED: GLUCOPHAGE ONE ×2 (08:55→19:49)
[2021-05-19] MEDS ORDERED: ZESTRIL TAB 20 MG ONE (08:55)
[2021-05-19] MEDS: CARDIZEM CD 180 MG 24-HR PO SCH (09:09)
[2021-05-19] MEDS: ZESTRIL TAB 20 MG PO SCH (09:10)
[2021-05-19] MEDS: GLUCOPHAGE PO SCH ×2 (09:10→20:09)
[2021-05-19] MEDS: TAB-A-VITE PO SCH (09:11)
[2021-05-19] MEDS: PROTONIX TAB 40 MG PO SCH (09:11)
[2021-05-19] MEDS: GLUCOTROL PO SCH (09:12)
[2021-05-19] MEDS: CORDARONE TAB 200 MG PO SCH ×2 (09:12→17:20)
[2021-05-19] MEDS: ELIQUIS PO SCH ×2 (09:12→20:11)
[2021-05-19] MEDS: APRESOLINE TAB 25 MG PO SCH ×2 (09:12→20:09)
[2021-05-19] MEDS: FLUPHENAZINE HCL 10 MG PO SCH ×2 (09:13→20:40)
--- NOTE | 2021-05-19 11:38 | PCM.PROG ---
Progress Note Progress Note for Day of Date of Exam: 05/19/21 Subjective Subjective: Patient seen at bedside, no events overnight. Patient's HR is still elevated, between 100-125. He is currently off cardizem drip. Denies chest pain or SOB. Labs/imaging reviewed Wound Cx: Proteus Plan: Will continue Zosyn, daily dressing changes. Will DC Digoxin. Start Amiodarone. Continue Diltiazem. Monitor patient on telemetry. Continue home medications. Echo pending. Monitor AM labs/imaging. Discussed current treatment plan with patient's over the phone. Past Medical Family Social History Past Med/Fam/Surg Hx: No changes since H&P Allergies: Allergies No Known Drug Allergies Allergy (Verified 12/21/19 12:19) Review of Systems ROS: No change since H&P Vital Signs and I&O's Vital Signs: Temperature 98 F Pulse Rate [Left Radial] 150 Pulse Rate 100 Respiratory Rate 20 Blood Pressure [Left Arm] 156/84 Blood Pressure [Right Arm] 172/93 Blood Pressure 147/59 O2 Sat by Pulse Oximetry 100 Intake and Output: Intake & Output 05/16/21 05/17/21 05/18/21 05/19/21 23:59 23:59 23:59 23:59 Intake Total 1477 / 1477 2119 / 2119 334 / 334 Output Total 1350 / 1350 1000 / 1000 300 / 300 Balance 127 / 127 1119 / 1119 34 / 34 Physical Exam Oriented: Person and Place Eyes: Normal Ear: Normal Nose: Normal Throat: Normal Respiratory: Generalized and Diminished Cardiovascular: Tachycardia and Irregular : Other (sacral wound noted, dressing intact ) Auscultation: Bowel Sounds: Normal Tenderness: Normal Skin: Decreased Turgur Musculoskeletal: Deformity (b/l BKA ) Psychiatric: Normal Mood Description: Calm Affect: Flat Speech Pattern: Clear and Appropriate Laboratory and Diagnostics Result Diagrams: 05/19/21 04:00 05/19/21 04:00 Labs: 05/17/21 16:18 Coccyx Wound Culture - Preliminary Proteus Mirabilis Laboratory WBC 13.3 X10^3/uL (3.6-10.0) H 05/19/21 04:00 RBC 2.93 X10^6/uL (4.7-6.0) L 05/19/21 04:00 Hgb 8.3 g/dL (13.5-18.0) L 05/19/21 04:00 Hct 24.7 % (42.0-54.0) L 05/19/21 04:00 MCV 84.1 fL (80.0-100.0) 05/19/21 04:00 MCH 28.2 pg (27.0-34.0) 05/19/21 04:00 MCHC 33.6 g/dL (33.0-35.0) 05/19/21 04:00 RDW 15.8 % (11.6-16.5) 05/19/21 04:00 Plt Count 263 X10^3/uL (150.0-450.0) 05/19/21 04:00 MPV 6.8 fL (7.4-11.0) L 05/19/21 04:00 Neut % (Auto) 87.7 % (42.0-75.0) H 05/19/21 04:00 Lymph % (Auto) 4.5 % (21.0-51.0) L 05/19/21 04:00 [place] % (Auto) 7.6 % (0.0-13.0) 05/19/21 04:00 Eos % (Auto) 0.0 % (0.9-2.9) L 05/19/21 04:00 Baso % (Auto) 0.2 % (0.2-1.0) 05/19/21 04:00 Neut # (Auto) 11.7 x10^3/uL (2.2-4.8) H 05/19/21 04:00 Lymph # (Auto) 0.6 X10^3/uL (1.3-2.9) L 05/19/21 04:00 [place] # (Auto) 1.0 x10^3/uL (0.3-0.8) H 05/19/21 04:00 Eos # (Auto) 0.0 x10^3/uL (0.0-0.2) 05/19/21 04:00 Baso # (Auto) 0.0 X10^3/uL (0.0-0.1) 05/19/21 04:00 Absolute Nucleated RBC 0.0 /100WBC 05/19/21 04:00 PT 17.4 SECONDS (11.8-14.3) 05/17/21 08:59 INR Target Range - 05/17/21 08:59 INR 1.50 (0.8-1.3) H 05/17/21 08:59 APTT 54.7 SECONDS (22.9-36.5) H 05/17/21 08:59 PTT Comment - 05/17/21 08:59 D-Dimer 1.05 ug/ml (0.0-0.57) H* 05/17/21 08:59 Sodium 138 mmol/L (136-145) 05/19/21 04:00 Corrected Sodium TNP 05/19/21 04:00 Potassium 3.5 mmol/L (3.5-5.1) 05/19/21 04:00 Chloride 104 mmol/L (98-107) 05/19/21 04:00 Carbon Dioxide 24.2 mmol/L (21-32) 05/19/21 04:00 BUN 8 mg/dL (7-18) 05/19/21 04:00 Creatinine 0.58 mg/dL (0.70-1.30) L 05/19/21 04:00 Est GFR (MDRD) Af Amer > 60 (>60) 05/19/21 04:00 Est GFR (MDRD) Non-Af > 60 (>60) 05/19/21 04:00 Glucose 100 mg/dL (65-99) H 05/19/21 04:00 POC Glucose (mg/dL) 174 mg/dL (65-99) H 05/18/21 19:17 Lactic Acid 1.0 mmol/L (0.4-2.0) 05/17/21 09:26 Calcium 7.9 mg/dL (8.5-10.1) L 05/19/21 04:00 Corrected Calcium 9.6 mg/dL (8.5-10.1) 05/18/21 04:00 Magnesium 1.9 mg/dL (1.7-2.9) 05/18/21 04:00 Iron 22 ug/dL (50-175) L 05/18/21 04:00 Transferrin 118 mg/dL (202-364) L 05/18/21 04:00 Ferritin 503 ng/mL (26-388) H 05/18/21 04:00 Total Bilirubin 0.40 mg/dL (0.2-1.0) 05/18/21 04:00 AST 23 Units/L (15-37) 05/18/21 04:00 ALT 11 Units/L (12-78) L 05/18/21 04:00 Alkaline Phosphatase 83 Units/L (46-116) 05/18/21 04:00 Creatine Kinase 84 Units/L (39-308) 05/17/21 22:24 CK-MB (CK-2) < 1.0 ng/mL (0-4.0) 05/17/21 22:24 CK/CKMB % Calc 1.2 % (<4) 05/17/21 22:24 Troponin I High Sens 24.0 ng/L (4.0-60.0) 05/17/21 22:24 Total Protein 6.6 g/dL (6.4-8.2) 05/18/21 04:00 Albumin 1.7 g/dL (3.4-5.0) L 05/18/21 04:00 Globulin 4.9 g/dL (2.5-4.5) H 05/18/21 04:00 Albumin/Globulin Ratio 0.3 Ratio (1.1-2.1) L 05/18/21 04:00 Triglycerides 63 mg/dL (0-150) 05/18/21 04:00 Cholesterol 130 mg/dL (0-200) 05/18/21 04:00 LDL Cholesterol, Calc 77 mg/dL (0-100) 05/18/21 04:00 HDL Cholesterol 40 mg/dL (40-60) 05/18/21 04:00 Cholesterol/HDL Ratio 3.3 (0.0-5.0) 05/18/21 04:00 Vitamin B12 309 pg/mL (193-986) 05/18/21 04:00 Folate 7.9 ng/mL (>8.6) L 05/18/21 04:00 TSH 3rd Generation 0.594 uIU/mL (0.358-3.74) 05/17/21 09:26 Specimen Type Catherized urine 05/17/21 15:15 Urine Color [place] (YELLOW) 05/17/21 15:15 Urine Appearance Clear (CLEAR) 05/17/21 15:15 Urine pH 6.0 (5.0 - 8.0) 05/17/21 15:15 Ur Specific [place] 1.015 (1.000-1.030) 05/17/21 15:15 Urine Protein 2+ (NEGATIVE) 05/17/21 15:15 Urine Glucose (UA) Negative (NEGATIVE) 05/17/21 15:15 Urine Ketones 2+ (NEGATIVE) 05/17/21 15:15 Urine Occult Blood 1+ (NEGATIVE) 05/17/21 15:15 Urine Nitrite Negative (NEGATIVE) 05/17/21 15:15 Urine Bilirubin Negative (NEGATIVE) 05/17/21 15:15 Urine Urobilinogen 2+ (NORMAL) 05/17/21 15:15 Ur Leukocyte Esterase Negative (NEGATIVE) 05/17/21 15:15 Urine RBC 3-5 /HPF (0-3) A 05/17/21 15:15 Urine WBC 3-5 /HPF (0-5) 05/17/21 15:15 Ur Squamous Epith Cells Rare /HPF (NEGATIVE) 05/17/21 15:15 Urine Bacteria Trace /HPF (NEGATIVE) 05/17/21 15:15 Urine Sperm Rare /HPF (NEGATIVE) 05/17/21 15:15 Ur Culture Indicated? No/not indicated 05/17/21 15:15 Digoxin 0.39 ng/mL (0.9-2) L 05/17/21 09:26 SARS CoV-2 RNA Rapid GIBSON Negative (NEGATIVE) 05/17/21 10:29 Plan (1) Atrial fibrillation with rapid ventricular response: Status: Acute (2) Sacral wound: Status: Acute Qualifiers: Encounter type: sequela Qualified Code(s): S31.000S - Unspecified open wound of lower back and pelvis without penetration into retroperitoneum, sequela (3) Diabetes mellitus: Status: Acute Qualifiers: Diabetes mellitus complication detail: with other circulatory complications Diabetes mellitus complication status: with circulatory complication Diabetes mellitus intermediate designer insulin use: without intermediate designer use Diabetes mellitus type: type 2 Qualified Code(s): E11.59 - Type 2 diabetes mellitus with other circulatory complications (4) Anemia: Status: Acute Qualifiers: Anemia type: other cause Other causes of anemia: other cause, not classified Qualified Code(s): D64.89 - Other specified anemias (5) S/P bilateral above knee amputation: Status: Acute (6) DJD (degenerative joint disease): Status: Acute Qualifiers: Osteoarthritis location: multiple joints Osteoarthritis type: unspecified Qualified Code(s): M15.9 - Polyosteoarthritis, unspecified (7) Schizophrenia: Status: Acute Qualifiers: Schizophrenia type: other Qualified Code(s): F20.89 - Other schizophrenia
[2021-05-19] MEDS: FOLIC ACID TAB 1 MG PO SCH (14:49)
[2021-05-19] MEDS ORDERED: CORDARONE TAB 200 MG PO SCH (17:00)
[2021-05-19] MEDS ORDERED: DEPAKOTE D.R. TAB PO ONE (19:49)
[2021-05-19] MEDS: DEPAKOTE D.R. TAB PO SCH (20:10)
[2021-05-20 05:18] LABS: BASOPHILS % (AUTO) 0.2 % (0.2-1.0); HEMOGLOBIN 7.8 g/dL (13.5-18.0); LYMPHOCYTES # (AUTO) 0.8 X10^3/uL (1.3-2.9); LYMPHOCYTES % (AUTO) 8.1 % (21.0-51.0); MEAN CORPUSCULAR HEMOGLOBIN 28.9 pg (27.0-34.0); MEAN CORPUSCULAR HGB CONC 34.1 g/dL (33.0-35.0); MEAN CORPUSCULAR VOLUME 84.8 fL (80.0-100.0); MEAN PLATELET VOLUME 6.6 fL (7.4-11.0); MONOCYTES # (AUTO) 0.7 x10^3/uL (0.3-0.8); MONOCYTES % (AUTO) 6.9 % (0.0-13.0); NEUTROPHILS # (AUTO) 8.4 x10^3/uL (2.2-4.8); NEUTROPHILS % (AUTO) 84.8 % (42.0-75.0); RED BLOOD COUNT 2.71 X10^6/uL (4.7-6.0); RED CELL DISTRIBUTION WIDTH 15.9 % (11.6-16.5); WHITE BLOOD COUNT 9.9 X10^3/uL (3.6-10.0)
[2021-05-20 05:27] LABS: BLOOD UREA NITROGEN 8 mg/dL (7-18); CHLORIDE 108 mmol/L (98-107); CREATININE 0.56 mg/dL (0.70-1.30); SODIUM 143 mmol/L (136-145); eGFR NON BLACK RACES > 60 (>60)
[2021-05-20] MEDS: ZOSYN VIAL 3.375 GRAMS 3.375 G in NS 100 ML IV 100 ML IV SCH ×3 (05:45→21:49)
[2021-05-20] MEDS: CORDARONE TAB 200 MG PO SCH ×2 (06:05→17:30)
[2021-05-20] MEDS ORDERED: GLUCOPHAGE ONE (09:02)
[2021-05-20] MEDS ORDERED: ZESTRIL TAB 20 MG ONE (09:02)
[2021-05-20] MEDS: CARDIZEM CD 180 MG 24-HR PO SCH (09:20)
[2021-05-20] MEDS: PROTONIX TAB 40 MG PO SCH (09:21)
[2021-05-20] MEDS: ZESTRIL TAB 20 MG PO SCH (09:21)
[2021-05-20] MEDS: FOLIC ACID TAB 1 MG PO SCH (09:21)
[2021-05-20] MEDS: TAB-A-VITE PO SCH (09:21)
[2021-05-20] MEDS: GLUCOTROL PO SCH ×2 (09:21→19:18)
[2021-05-20] MEDS: APRESOLINE TAB 25 MG PO SCH ×2 (09:21→20:18)
[2021-05-20] MEDS: ELIQUIS PO SCH ×2 (09:21→20:16)
[2021-05-20] MEDS: GLUCOPHAGE PO SCH (09:22)
[2021-05-20] MEDS: FLUPHENAZINE HCL 10 MG PO SCH ×2 (09:25→21:49)
[2021-05-20] MEDS ORDERED: NS 500 ML IV 500 ML IV ONE (09:49)
--- NOTE | 2021-05-20 10:40 | PCM.PROG ---
Progress Note Progress Note for Day of Date of Exam: 05/20/21 Subjective Subjective: Patient seen at bedside, no acute events overnight. His HR did improve yesterday but is elevated this morning 110-120s. He has not received his morning medications yet. He denies Sx. He did have low FSBG 55, drank some apple juice and it did come up to 81. Labs/imaging reviewed Wound Cx: Proteus Plan: Will continue Zosyn, daily dressing changes. Continue Amiodarone and Diltiazem. Monitor patient on telemetry. Patient's hgb 7.8, will transfuse 2 units PRBCs. Monitor H/H. Continue home medications. Will DC glipizide, decrease metformin to 1000 mg daily. Echo pending. Monitor AM labs/imaging. Past Medical Family Social History Past Med/Fam/Surg Hx: No changes since H&P Allergies: Allergies No Known Drug Allergies Allergy (Verified 12/21/19 12:19) Review of Systems ROS: No change since H&P Vital Signs and I&O's Vital Signs: Temperature 98.1 F Pulse Rate [Left Radial] 150 Pulse Rate 86 Respiratory Rate 20 Blood Pressure [Left Arm] 156/84 Blood Pressure [Right Arm] 172/93 Blood Pressure 134/60 O2 Sat by Pulse Oximetry 100 Intake and Output: Intake & Output 05/17/21 05/18/21 05/19/21 05/20/21 23:59 23:59 23:59 23:59 Intake Total 1477 / 1477 2119 / 2119 1966 / 1965 113 / 113 Output Total 1350 / 1350 1000 / 1000 775 / 775 200 / 200 Balance 127 / 127 1119 / 1119 1191 / 1191 -87 / -87 Physical Exam Oriented: Person and Place Eyes: Normal Ear: Normal Nose: Normal Throat: Normal Respiratory: Generalized and Diminished Cardiovascular: Tachycardia and Irregular : Other (sacral wound noted, dressing intact ) Auscultation: Bowel Sounds: Normal Tenderness: Normal Skin: Decreased Turgur Musculoskeletal: Deformity (b/l BKA ) Psychiatric: Normal Mood Description: Calm Affect: Flat Speech Pattern: Clear and Appropriate Laboratory and Diagnostics Result Diagrams: 05/20/21 04:00 05/20/21 05:42 Labs: 05/17/21 16:18 Coccyx Wound Culture - Preliminary Proteus Mirabilis Escherichia Coli Laboratory WBC 9.9 X10^3/uL (3.6-10.0) 05/20/21 04:00 RBC 2.71 X10^6/uL (4.7-6.0) L 05/20/21 04:00 Hgb 7.8 g/dL (13.5-18.0) L 05/20/21 04:00 Hct 23.0 % (42.0-54.0) L 05/20/21 04:00 MCV 84.8 fL (80.0-100.0) 05/20/21 04:00 MCH 28.9 pg (27.0-34.0) 05/20/21 04:00 MCHC 34.1 g/dL (33.0-35.0) 05/20/21 04:00 RDW 15.9 % (11.6-16.5) 05/20/21 04:00 Plt Count 279 X10^3/uL (150.0-450.0) 05/20/21 04:00 MPV 6.6 fL (7.4-11.0) L 05/20/21 04:00 Neut % (Auto) 84.8 % (42.0-75.0) H 05/20/21 04:00 Lymph % (Auto) 8.1 % (21.0-51.0) L 05/20/21 04:00 [place] % (Auto) 6.9 % (0.0-13.0) 05/20/21 04:00 Eos % (Auto) 0.0 % (0.9-2.9) L 05/20/21 04:00 Baso % (Auto) 0.2 % (0.2-1.0) 05/20/21 04:00 Neut # (Auto) 8.4 x10^3/uL (2.2-4.8) H 05/20/21 04:00 Lymph # (Auto) 0.8 X10^3/uL (1.3-2.9) L 05/20/21 04:00 [place] # (Auto) 0.7 x10^3/uL (0.3-0.8) 05/20/21 04:00 Eos # (Auto) 0.0 x10^3/uL (0.0-0.2) 05/20/21 04:00 Baso # (Auto) 0.0 X10^3/uL (0.0-0.1) 05/20/21 04:00 Absolute Nucleated RBC 0.0 /100WBC 05/20/21 04:00 PT 17.4 SECONDS (11.8-14.3) 05/17/21 08:59 INR Target Range - 05/17/21 08:59 INR 1.50 (0.8-1.3) H 05/17/21 08:59 APTT 54.7 SECONDS (22.9-36.5) H 05/17/21 08:59 PTT Comment - 05/17/21 08:59 D-Dimer 1.05 ug/ml (0.0-0.57) H* 05/17/21 08:59 Sodium 143 mmol/L (136-145) 05/20/21 04:00 Corrected Sodium TNP 05/20/21 04:00 Potassium 3.5 mmol/L (3.5-5.1) 05/20/21 04:00 Chloride 108 mmol/L (98-107) H 05/20/21 04:00 Carbon Dioxide 25.0 mmol/L (21-32) 05/20/21 04:00 BUN 8 mg/dL (7-18) 05/20/21 04:00 Creatinine 0.56 mg/dL (0.70-1.30) L 05/20/21 04:00 Est GFR (MDRD) Af Amer > 60 (>60) 05/20/21 04:00 Est GFR (MDRD) Non-Af > 60 (>60) 05/20/21 04:00 Glucose 81 mg/dL (65-99) 05/20/21 05:42 POC Glucose (mg/dL) 55 mg/dL (65-99) L 05/20/21 05:24 Lactic Acid 1.0 mmol/L (0.4-2.0) 05/17/21 09:26 Calcium 8.0 mg/dL (8.5-10.1) L 05/20/21 04:00 Corrected Calcium 9.6 mg/dL (8.5-10.1) 05/18/21 04:00 Magnesium 1.9 mg/dL (1.7-2.9) 05/18/21 04:00 Iron 22 ug/dL (50-175) L 05/18/21 04:00 Transferrin 118 mg/dL (202-364) L 05/18/21 04:00 Ferritin 503 ng/mL (26-388) H 05/18/21 04:00 Total Bilirubin 0.40 mg/dL (0.2-1.0) 05/18/21 04:00 AST 23 Units/L (15-37) 05/18/21 04:00 ALT 11 Units/L (12-78) L 05/18/21 04:00 Alkaline Phosphatase 83 Units/L (46-116) 05/18/21 04:00 Creatine Kinase 84 Units/L (39-308) 05/17/21 22:24 CK-MB (CK-2) < 1.0 ng/mL (0-4.0) 05/17/21 22:24 CK/CKMB % Calc 1.2 % (<4) 05/17/21 22:24 Troponin I High Sens 24.0 ng/L (4.0-60.0) 05/17/21 22:24 Total Protein 6.6 g/dL (6.4-8.2) 05/18/21 04:00 Albumin 1.7 g/dL (3.4-5.0) L 05/18/21 04:00 Globulin 4.9 g/dL (2.5-4.5) H 05/18/21 04:00 Albumin/Globulin Ratio 0.3 Ratio (1.1-2.1) L 05/18/21 04:00 Triglycerides 63 mg/dL (0-150) 05/18/21 04:00 Cholesterol 130 mg/dL (0-200) 05/18/21 04:00 LDL Cholesterol, Calc 77 mg/dL (0-100) 05/18/21 04:00 HDL Cholesterol 40 mg/dL (40-60) 05/18/21 04:00 Cholesterol/HDL Ratio 3.3 (0.0-5.0) 05/18/21 04:00 Vitamin B12 309 pg/mL (193-986) 05/18/21 04:00 Folate 7.9 ng/mL (>8.6) L 05/18/21 04:00 TSH 3rd Generation 0.594 uIU/mL (0.358-3.74) 05/17/21 09:26 Specimen Type Catherized urine 05/17/21 15:15 Urine Color Liliana (YELLOW) 05/17/21 15:15 Urine Appearance Clear (CLEAR) 05/17/21 15:15 Urine pH 6.0 (5.0 - 8.0) 05/17/21 15:15 Ur Specific [place] 1.015 (1.000-1.030) 05/17/21 15:15 Urine Protein 2+ (NEGATIVE) 05/17/21 15:15 Urine Glucose (UA) Negative (NEGATIVE) 05/17/21 15:15 Urine Ketones 2+ (NEGATIVE) 05/17/21 15:15 Urine Occult Blood 1+ (NEGATIVE) 05/17/21 15:15 Urine Nitrite Negative (NEGATIVE) 05/17/21 15:15 Urine Bilirubin Negative (NEGATIVE) 05/17/21 15:15 Urine Urobilinogen 2+ (NORMAL) 05/17/21 15:15 Ur Leukocyte Esterase Negative (NEGATIVE) 05/17/21 15:15 Urine RBC 3-5 /HPF (0-3) A 05/17/21 15:15 Urine WBC 3-5 /HPF (0-5) 05/17/21 15:15 Ur Squamous Epith Cells Rare /HPF (NEGATIVE) 05/17/21 15:15 Urine Bacteria Trace /HPF (NEGATIVE) 05/17/21 15:15 Urine Sperm Rare /HPF (NEGATIVE) 05/17/21 15:15 Ur Culture Indicated? No/not indicated 05/17/21 15:15 Digoxin 0.39 ng/mL (0.9-2) L 05/17/21 09:26 SARS CoV-2 RNA Rapid GIBSON Negative (NEGATIVE) 05/17/21 10:29 Plan (1) Atrial fibrillation with rapid ventricular response: Status: Acute (2) Sacral wound: Status: Acute Qualifiers: Encounter type: sequela Qualified Code(s): S31.000S - Unspecified open wound of lower back and pelvis without penetration into retroperitoneum, sequela (3) Diabetes mellitus: Status: Acute Qualifiers: Diabetes mellitus complication detail: with other circulatory complications Diabetes mellitus complication status: with circulatory complication Diabetes mellitus mcfp insulin use: without bed bug exterminator use Diabetes mellitus type: type 2 Qualified Code(s): E11.59 - Type 2 diabetes mellitus with other circulatory complications (4) Anemia: Status: Acute Qualifiers: Anemia type: other cause Other causes of anemia: other cause, not classified Qualified Code(s): D64.89 - Other specified anemias (5) S/P bilateral above knee amputation: Status: Acute (6) DJD (degenerative joint disease): Status: Acute Qualifiers: Osteoarthritis location: multiple joints Osteoarthritis type: unspecified Qualified Code(s): M15.9 - Polyosteoarthritis, unspecified (7) Schizophrenia: Status: Acute Qualifiers: Schizophrenia type: other Qualified Code(s): F20.89 - Other schizophrenia
[2021-05-20] MEDS ORDERED: CARDIZEM INJ 125 MG VIAL 125 MG in NS 100 ML IV 100 ML IV PRN (11:50)
[2021-05-20] MEDS ORDERED: DEPAKOTE D.R. TAB PO ONE (19:28)
[2021-05-20] MEDS: SNACK - Diabetic Appropriate PO SCH (20:06)
[2021-05-20] MEDS: DEPAKOTE D.R. TAB PO SCH (20:17)
[2021-05-21 01:17] LABS: HEMATOCRIT 25.4 % (42.0-54.0); HEMOGLOBIN 8.8 g/dL (13.5-18.0)
[2021-05-21 04:57] LABS: BASOPHILS % (AUTO) 0.4 % (0.2-1.0); EOSINOPHILS % (AUTO) 0.2 % (0.9-2.9); HEMATOCRIT 25.4 % (42.0-54.0); HEMOGLOBIN 8.6 g/dL (13.5-18.0); LYMPHOCYTES # (AUTO) 1.3 X10^3/uL (1.3-2.9); LYMPHOCYTES % (AUTO) 14.1 % (21.0-51.0); MEAN CORPUSCULAR HEMOGLOBIN 28.9 pg (27.0-34.0); MEAN CORPUSCULAR HGB CONC 33.9 g/dL (33.0-35.0); MEAN CORPUSCULAR VOLUME 85.3 fL (80.0-100.0); MEAN PLATELET VOLUME 6.4 fL (7.4-11.0); MONOCYTES % (AUTO) 11.1 % (0.0-13.0); NEUTROPHILS # (AUTO) 6.7 x10^3/uL (2.2-4.8); NEUTROPHILS % (AUTO) 74.2 % (42.0-75.0); RED BLOOD COUNT 2.97 X10^6/uL (4.7-6.0); RED CELL DISTRIBUTION WIDTH 16.5 % (11.6-16.5)
[2021-05-21 05:08] LABS: BLOOD UREA NITROGEN 8 mg/dL (7-18); CALCIUM 7.8 mg/dL (8.5-10.1); CARBON DIOXIDE 25.3 mmol/L (21-32); CHLORIDE 107 mmol/L (98-107); CREATININE 0.49 mg/dL (0.70-1.30); SODIUM 141 mmol/L (136-145); eGFR NON BLACK RACES > 60 (>60)
[2021-05-21] MEDS: ZOSYN VIAL 3.375 GRAMS 3.375 G in NS 100 ML IV 100 ML IV SCH ×3 (05:41→21:02)
[2021-05-21] MEDS: CORDARONE TAB 200 MG PO SCH ×2 (06:27→17:49)
[2021-05-21] MEDS: GLUCOPHAGE PO SCH (08:00)
[2021-05-21] MEDS: TYLENOL 325 MG TAB PO PRN ×2 (08:09→20:26)
[2021-05-21] MEDS ORDERED: ZESTRIL TAB 20 MG ONE (08:41)
[2021-05-21] MEDS: PROTONIX TAB 40 MG PO SCH (08:44)
[2021-05-21] MEDS: FOLIC ACID TAB 1 MG PO SCH (08:44)
[2021-05-21] MEDS: ELIQUIS PO SCH ×2 (08:44→20:25)
[2021-05-21] MEDS: CARDIZEM CD 180 MG 24-HR PO SCH (08:44)
[2021-05-21] MEDS: APRESOLINE TAB 25 MG PO SCH ×2 (08:44→20:25)
[2021-05-21] MEDS: TAB-A-VITE PO SCH (08:45)
[2021-05-21] MEDS: ZESTRIL TAB 20 MG PO SCH (08:45)
[2021-05-21] MEDS: FLUPHENAZINE HCL 10 MG PO SCH ×2 (08:47→20:24)
[2021-05-21] MEDS ORDERED: CARDIZEM ER 60 MG 12-HR PO ONE (09:38)
[2021-05-21] MEDS: VIBRAMYCIN PO SCH ×2 (10:30→20:25)
--- NOTE | 2021-05-21 10:34 | PCM.PROG ---
Progress Note Progress Note for Day of Date of Exam: 05/21/21 Subjective Subjective: Patient seen at bedside, no acute events overnight. His HR was elevated again in 150s yesterday afternoon, restarted on Cardizem drip. He is currently on 2.5 mg/hr, HR 95-100. Denies chest pain or SOB. He did receive 1 unit of PRBC. Hgb 8.6. Labs/imaging reviewed Plan: Will add 60 mg of PO Diltazem , total of 240 mg daily. Continue Amiodarone. Stop Cardizem drip if HR remains below 100. Continue IV Zosyn, add doxycycline 100 mg BID. Echo pending. Patient will be out of his psych medication, pharmacy here does not carry it. Will send in to [facility] for to pickle maker and drop off for the patient. Daily dressing change. Monitor AM labs/imaging. Past Medical Family Social History Past Med/Fam/Surg Hx: No changes since H&P Allergies: Allergies No Known Drug Allergies Allergy (Verified 12/21/19 12:19) Review of Systems ROS: No change since H&P Vital Signs and I&O's Vital Signs: Temperature 98.2 F Pulse Rate [Left Radial] 150 Pulse Rate 91 Respiratory Rate 18 Blood Pressure [Left Arm] 156/84 Blood Pressure [Right Arm] 172/93 Blood Pressure 129/73 O2 Sat by Pulse Oximetry 100 Intake and Output: Intake & Output 05/18/21 05/19/21 05/20/21 05/22/21 23:59 23:59 23:59 00:59 Intake Total 2119 / 2119 [birth year] 1214 / 1214 175 / 175 Output Total 1000 / 1000 775 / 775 400 / 400 150 / 150 Balance 1119 / 1119 1191 / 1191 814 / 814 Physical Exam Oriented: Person and Place Eyes: Normal Ear: Normal Nose: Normal Throat: Normal Respiratory: Generalized and Diminished Cardiovascular: Tachycardia and Irregular : Other (sacral wound noted, dressing intact ) Auscultation: Bowel Sounds: Normal Tenderness: Normal Skin: Decreased Turgur Musculoskeletal: Deformity (b/l BKA ) Psychiatric: Normal Mood Description: Calm Affect: Flat Speech Pattern: Clear, Appropriate and Delayed Laboratory and Diagnostics Result Diagrams: 05/21/21 03:55 05/21/21 03:55 Labs: 05/17/21 16:18 Coccyx Wound Culture - Final Proteus Mirabilis Escherichia Coli Enterococcus Gallinarum 05/18/21 00:29 Blood Blood Culture - Preliminary 05/18/21 00:23 Blood Blood Culture - Preliminary Laboratory WBC 9.0 X10^3/uL (3.6-10.0) 05/21/21 03:55 RBC 2.97 X10^6/uL (4.7-6.0) L 05/21/21 03:55 Hgb 8.6 g/dL (13.5-18.0) L 05/21/21 03:55 Hct 25.4 % (42.0-54.0) L 05/21/21 03:55 MCV 85.3 fL (80.0-100.0) 05/21/21 03:55 MCH 28.9 pg (27.0-34.0) 05/21/21 03:55 MCHC 33.9 g/dL (33.0-35.0) 05/21/21 03:55 RDW 16.5 % (11.6-16.5) 05/21/21 03:55 Plt Count 299 X10^3/uL (150.0-450.0) 05/21/21 03:55 MPV 6.4 fL (7.4-11.0) L 05/21/21 03:55 Neut % (Auto) 74.2 % (42.0-75.0) 05/21/21 03:55 Lymph % (Auto) 14.1 % (21.0-51.0) L 05/21/21 03:55 [place] % (Auto) 11.1 % (0.0-13.0) 05/21/21 03:55 Eos % (Auto) 0.2 % (0.9-2.9) L 05/21/21 03:55 Baso % (Auto) 0.4 % (0.2-1.0) 05/21/21 03:55 Neut # (Auto) 6.7 x10^3/uL (2.2-4.8) H 05/21/21 03:55 Lymph # (Auto) 1.3 X10^3/uL (1.3-2.9) 05/21/21 03:55 [place] # (Auto) 1.0 x10^3/uL (0.3-0.8) H 05/21/21 03:55 Eos # (Auto) 0.0 x10^3/uL (0.0-0.2) 05/21/21 03:55 Baso # (Auto) 0.0 X10^3/uL (0.0-0.1) 05/21/21 03:55 Absolute Nucleated RBC 0.0 /100WBC 05/21/21 03:55 PT 17.4 SECONDS (11.8-14.3) 05/17/21 08:59 INR Target Range - 05/17/21 08:59 INR 1.50 (0.8-1.3) H 05/17/21 08:59 APTT 54.7 SECONDS (22.9-36.5) H 05/17/21 08:59 PTT Comment - 05/17/21 08:59 D-Dimer 1.05 ug/ml (0.0-0.57) H* 05/17/21 08:59 Sodium 141 mmol/L (136-145) 05/21/21 03:55 Corrected Sodium TNP 05/21/21 03:55 Potassium 3.5 mmol/L (3.5-5.1) 05/21/21 03:55 Chloride 107 mmol/L (98-107) 05/21/21 03:55 Carbon Dioxide 25.3 mmol/L (21-32) 05/21/21 03:55 BUN 8 mg/dL (7-18) 05/21/21 03:55 Creatinine 0.49 mg/dL (0.70-1.30) L 05/21/21 03:55 Est GFR (MDRD) Af Amer > 60 (>60) 05/21/21 03:55 Est GFR (MDRD) Non-Af > 60 (>60) 05/21/21 03:55 Glucose 71 mg/dL (65-99) 05/21/21 03:55 POC Glucose (mg/dL) 74 mg/dL (65-99) 05/21/21 05:46 Lactic Acid 1.0 mmol/L (0.4-2.0) 05/17/21 09:26 Calcium 7.8 mg/dL (8.5-10.1) L 05/21/21 03:55 Corrected Calcium 9.6 mg/dL (8.5-10.1) 05/18/21 04:00 Magnesium 1.9 mg/dL (1.7-2.9) 05/18/21 04:00 Iron 22 ug/dL (50-175) L 05/18/21 04:00 Transferrin 118 mg/dL (202-364) L 05/18/21 04:00 Ferritin 503 ng/mL (26-388) H 05/18/21 04:00 Total Bilirubin 0.40 mg/dL (0.2-1.0) 05/18/21 04:00 AST 23 Units/L (15-37) 05/18/21 04:00 ALT 11 Units/L (12-78) L 05/18/21 04:00 Alkaline Phosphatase 83 Units/L (46-116) 05/18/21 04:00 Creatine Kinase 84 Units/L (39-308) 05/17/21 22:24 CK-MB (CK-2) < 1.0 ng/mL (0-4.0) 05/17/21 22:24 CK/CKMB % Calc 1.2 % (<4) 05/17/21 22:24 Troponin I High Sens 24.0 ng/L (4.0-60.0) 05/17/21 22:24 Total Protein 6.6 g/dL (6.4-8.2) 05/18/21 04:00 Albumin 1.7 g/dL (3.4-5.0) L 05/18/21 04:00 Globulin 4.9 g/dL (2.5-4.5) H 05/18/21 04:00 Albumin/Globulin Ratio 0.3 Ratio (1.1-2.1) L 05/18/21 04:00 Triglycerides 63 mg/dL (0-150) 05/18/21 04:00 Cholesterol 130 mg/dL (0-200) 05/18/21 04:00 LDL Cholesterol, Calc 77 mg/dL (0-100) 05/18/21 04:00 HDL Cholesterol 40 mg/dL (40-60) 05/18/21 04:00 Cholesterol/HDL Ratio 3.3 (0.0-5.0) 05/18/21 04:00 Vitamin B12 309 pg/mL (193-986) 05/18/21 04:00 Folate 7.9 ng/mL (>8.6) L 05/18/21 04:00 TSH 3rd Generation 0.594 uIU/mL (0.358-3.74) 05/17/21 09:26 Specimen Type Catherized urine 05/17/21 15:15 Urine Color Liliana (YELLOW) 05/17/21 15:15 Urine Appearance Clear (CLEAR) 05/17/21 15:15 Urine pH 6.0 (5.0 - 8.0) 05/17/21 15:15 Ur Specific [place] 1.015 (1.000-1.030) 05/17/21 15:15 Urine Protein 2+ (NEGATIVE) 05/17/21 15:15 Urine Glucose (UA) Negative (NEGATIVE) 05/17/21 15:15 Urine Ketones 2+ (NEGATIVE) 05/17/21 15:15 Urine Occult Blood 1+ (NEGATIVE) 05/17/21 15:15 Urine Nitrite Negative (NEGATIVE) 05/17/21 15:15 Urine Bilirubin Negative (NEGATIVE) 05/17/21 15:15 Urine Urobilinogen 2+ (NORMAL) 05/17/21 15:15 Ur Leukocyte Esterase Negative (NEGATIVE) 05/17/21 15:15 Urine RBC 3-5 /HPF (0-3) A 05/17/21 15:15 Urine WBC 3-5 /HPF (0-5) 05/17/21 15:15 Ur Squamous Epith Cells Rare /HPF (NEGATIVE) 05/17/21 15:15 Urine Bacteria Trace /HPF (NEGATIVE) 05/17/21 15:15 Urine Sperm Rare /HPF (NEGATIVE) 05/17/21 15:15 Ur Culture Indicated? No/not indicated 05/17/21 15:15 Digoxin 0.39 ng/mL (0.9-2) L 05/17/21 09:26 SARS CoV-2 RNA Rapid GIBSON Negative (NEGATIVE) 05/17/21 10:29 Blood Type A POSITIVE 05/20/21 10:13 Antibody Screen Negative 05/20/21 10:13 Crossmatch See Detail 05/20/21 10:13 Plan (1) Atrial fibrillation with rapid ventricular response: Status: Acute (2) Sacral wound: Status: Acute Qualifiers: Encounter type: sequela Qualified Code(s): S31.000S - Unspecified open wound of lower back and pelvis without penetration into retroperitoneum, sequela (3) Diabetes mellitus: Status: Acute Qualifiers: Diabetes mellitus complication detail: with other circulatory complications Diabetes mellitus complication status: with circulatory complication Diabetes mellitus termite exterminator insulin use: without termite exterminator use Diabetes mellitus type: type 2 Qualified Code(s): E11.59 - Type 2 diabetes mellitus with other circulatory complications (4) Anemia: Status: Acute Qualifiers: Anemia type: other cause Other causes of anemia: other cause, not classified Qualified Code(s): D64.89 - Other specified anemias (5) S/P bilateral above knee amputation: Status: Acute (6) DJD (degenerative joint disease): Status: Acute Qualifiers: Osteoarthritis location: multiple joints Osteoarthritis type: unspecified Qualified Code(s): M15.9 - Polyosteoarthritis, unspecified (7) Schizophrenia: Status: Acute Qualifiers: Schizophrenia type: other Qualified Code(s): F20.89 - Other schizophrenia
[2021-05-21] MEDS: PLAVIX PO SCH (11:22)
[2021-05-21] MEDS ORDERED: DEPAKOTE D.R. TAB PO ONE (19:15)
[2021-05-21] MEDS: SNACK - Diabetic Appropriate PO SCH (20:25)
[2021-05-21] MEDS: DEPAKOTE D.R. TAB PO SCH (20:25)
[2021-05-22 04:55] LABS: BASOPHILS % (AUTO) 0.4 % (0.2-1.0); EOSINOPHILS # (AUTO) 0.1 x10^3/uL (0.0-0.2); EOSINOPHILS % (AUTO) 0.8 % (0.9-2.9); HEMATOCRIT 25.8 % (42.0-54.0); HEMOGLOBIN 8.8 g/dL (13.5-18.0); LYMPHOCYTES # (AUTO) 1.6 X10^3/uL (1.3-2.9); MEAN CORPUSCULAR HEMOGLOBIN 29.2 pg (27.0-34.0); MEAN CORPUSCULAR HGB CONC 34.2 g/dL (33.0-35.0); MEAN CORPUSCULAR VOLUME 85.6 fL (80.0-100.0); MEAN PLATELET VOLUME 6.3 fL (7.4-11.0); MONOCYTES % (AUTO) 11.9 % (0.0-13.0); NEUTROPHILS % (AUTO) 68.9 % (42.0-75.0); RED BLOOD COUNT 3.02 X10^6/uL (4.7-6.0); RED CELL DISTRIBUTION WIDTH 16.4 % (11.6-16.5); WHITE BLOOD COUNT 8.6 X10^3/uL (3.6-10.0)
[2021-05-22 05:00] LABS: BLOOD UREA NITROGEN 9 mg/dL (7-18); CALCIUM 7.7 mg/dL (8.5-10.1); CARBON DIOXIDE 27.1 mmol/L (21-32); CHLORIDE 107 mmol/L (98-107); CREATININE 0.54 mg/dL (0.70-1.30); SODIUM 141 mmol/L (136-145); eGFR NON BLACK RACES > 60 (>60)
[2021-05-22] MEDS: ZOSYN VIAL 3.375 GRAMS 3.375 G in NS 100 ML IV 100 ML IV SCH (05:09)
[2021-05-22] MEDS: CORDARONE TAB 200 MG PO SCH (06:07)
[2021-05-22] MEDS: GLUCOPHAGE PO SCH (07:27)
[2021-05-22] MEDS ORDERED: ZESTRIL TAB 20 MG ONE (08:10)
[2021-05-22] MEDS: ZESTRIL TAB 20 MG PO SCH (08:24)
[2021-05-22] MEDS: APRESOLINE TAB 25 MG PO SCH (08:24)
[2021-05-22] MEDS: ELIQUIS PO SCH (08:24)
[2021-05-22] MEDS: FLUPHENAZINE HCL 10 MG PO SCH (08:25)
[2021-05-22] MEDS: FOLIC ACID TAB 1 MG PO SCH (08:25)
[2021-05-22] MEDS: PLAVIX PO SCH (08:25)
[2021-05-22] MEDS: PROTONIX TAB 40 MG PO SCH (08:26)
[2021-05-22] MEDS: VIBRAMYCIN PO SCH (08:26)
[2021-05-22] MEDS: TAB-A-VITE PO SCH (08:26)
[2021-05-22] MEDS: TYLENOL 325 MG TAB PO PRN (08:27)
[2021-05-22] MEDS ORDERED: CARDIZEM CD 240 MG 24-HR PO SCH (09:00)
--- NOTE | 2021-05-22 12:38 | W.DIS.FURT ---
Summary of Discharge Discharge Summary of Date Date of Exam: 05/22/21 Admission Date Date of Admission: 05/17/21 Admission Diagnosis Patient Problems (Updated 05/23/21 @ 15:56 by Niki Thompson) Uncontrolled hypertension (Acute) I10 Diabetes mellitus (Chronic) E11.9 Atrial fibrillation (Chronic) I48.91 Hospital Course: Mr Sanchez is a 66y/o male with a PMH of diabetes, atrial fibrillation, bilateral above knee amputation, HTN and mood disorder presented due to elevated HR. Patient's home health nurse noticed patient's HR to be elevated so he was sent to the ER. Patient is not able to provide any history. He answered some direct questions by nodding head or saying yes/no. Patient's history was obtained from patient's . She states he has been doing well and not feeling sick. He did see wound care on Saturday for his sacral wound and was told it is looking better. She states it has been draining and has a foul odor. Patient has had this wound for a while now and sees wound care in [place]. In the ER, patient was noted to be in atrial fibrillation with RVR. He was given multiple doses of cardizem and digoxin. He was started on Cardizem drip. He was admitted to ICU for further management. Dr Zapata with cardiology was consulted and he increased patient's dose of digoxin and diltiazem. He also ordered d-dimer and echo. Patient's d-dimer was elevated so CTA was done which was negative for PE. His cardiac enzymes were negative. His cardizem drip was weaned off but then had to be restarted as patient's HR remained above 100. He was started on amiodarone and digoxin was stopped. Wound culture was also obtained and patient was started on IV antibiotics. His Cx grew Proteus. Dressing changes were done daily as needed. Patient's labs were monitored daily and electrolytes replaced as needed. Patient's was updated about treatment plan. ECHO showed mild pulmonary HTN with EF 58%. Patient denies chest pain, palpitations or SOB. He was stable for discharge. He will follow up with PCP, cardiology and wound care. Vital Signs: Vital Signs (72 hours) 05/19/21 12:00 05/19/21 13:00 05/19/21 14:00 Temperature Pulse Rate 124 H 113 H 108 H Respiratory Rate 23 22 33 H Blood Pressure 143/82 163/71 149/81 O2 Sat by Pulse Oximetry 100 100 100 05/19/21 15:00 05/19/21 16:00 05/19/21 17:00 Temperature 97.9 F Pulse Rate 119 H 89 107 H Respiratory Rate 25 H 20 23 Blood Pressure 100/72 115/58 158/72 O2 Sat by Pulse Oximetry 100 100 100 05/19/21 18:00 05/19/21 19:00 05/19/21 20:00 Temperature Pulse Rate 119 H 120 H 98 H Respiratory Rate 20 24 19 Blood Pressure 156/71 161/74 192/77 O2 Sat by Pulse Oximetry 100 100 100 05/19/21 21:00 05/19/21 22:00 05/19/21 23:00 Temperature Pulse Rate 103 H 104 H 95 H Respiratory Rate 24 25 H 22 Blood Pressure 169/88 165/73 157/72 O2 Sat by Pulse Oximetry 100 100 100 05/20/21 00:00 05/20/21 01:00 05/20/21 02:00 Temperature 98.4 F Pulse Rate 97 H 99 H 108 H Respiratory Rate 25 H 24 23 Blood Pressure 135/66 150/76 175/92 O2 Sat by Pulse Oximetry 100 100 100 05/20/21 03:00 05/20/21 04:00 05/20/21 05:00 Temperature 98.1 F Pulse Rate 110 H 118 H 113 H Respiratory Rate 29 H 22 25 H Blood Pressure 155/86 179/81 163/89 O2 Sat by Pulse Oximetry 100 100 100 05/20/21 06:00 05/20/21 07:00 05/20/21 08:00 Temperature 97.9 F Pulse Rate 86 97 H 102 H Respiratory Rate 20 20 20 Blood Pressure 134/60 162/89 O2 Sat by Pulse Oximetry 100 100 100 05/20/21 09:00 05/20/21 10:00 05/20/21 11:00 Temperature Pulse Rate 114 H 132 H 134 H Respiratory Rate 20 20 20 Blood Pressure 171/74 155/75 155/75 O2 Sat by Pulse Oximetry 100 100 100 05/20/21 12:00 05/20/21 13:00 05/20/21 14:00 Temperature 98.7 F Pulse Rate 146 H 138 H 138 H Respiratory Rate 25 H 24 20 Blood Pressure 152/84 134/81 137/85 O2 Sat by Pulse Oximetry 100 100 100 05/20/21 15:00 05/20/21 16:00 05/20/21 17:00 Temperature 98.7 F Pulse Rate 106 H 73 98 H Respiratory Rate 23 20 20 Blood Pressure 131/69 126/61 179/74 O2 Sat by Pulse Oximetry 100 100 100 05/20/21 18:00 05/20/21 19:00 05/20/21 20:00 Temperature 98.7 F Pulse Rate 91 H 87 86 Respiratory Rate 20 20 18 Blood Pressure 100/52 101/53 110/54 O2 Sat by Pulse Oximetry 100 100 100 05/20/21 21:00 05/20/21 22:00 05/20/21 23:00 Temperature Pulse Rate 86 98 H 89 Respiratory Rate 22 18 18 Blood Pressure 115/66 154/72 154/72 O2 Sat by Pulse Oximetry 98 98 98 05/21/21 00:00 05/21/21 01:00 05/21/21 03:00 Temperature 98.2 F Pulse Rate 77 99 H 99 H Respiratory Rate 18 22 22 Blood Pressure 175/85 169/87 169/81 O2 Sat by Pulse Oximetry 100 100 100 05/21/21 04:00 05/21/21 05:00 05/21/21 06:00 Temperature 98.4 F Pulse Rate 94 H 86 87 Respiratory Rate 17 18 18 Blood Pressure 156/74 143/72 147/68 O2 Sat by Pulse Oximetry 100 100 100 05/21/21 07:00 05/21/21 08:00 05/21/21 08:09 Temperature 98.2 F Pulse Rate 114 H 100 H Respiratory Rate 18 16 18 Blood Pressure 138/72 152/84 O2 Sat by Pulse Oximetry 97 100 05/21/21 09:00 05/21/21 09:09 05/21/21 10:00 Temperature Pulse Rate 95 H 91 H Respiratory Rate 18 18 18 Blood Pressure 119/66 129/73 O2 Sat by Pulse Oximetry 99 100 05/21/21 11:00 05/21/21 12:00 05/21/21 13:00 Temperature 98.1 F Pulse Rate 90 98 H 93 H Respiratory Rate 18 18 18 Blood Pressure 151/65 148/67 141/90 O2 Sat by Pulse Oximetry 100 100 100 05/21/21 14:00 05/21/21 15:00 05/21/21 16:00 Temperature 98.2 F Pulse Rate 88 76 77 Respiratory Rate 18 18 17 Blood Pressure 139/63 111/55 122/79 O2 Sat by Pulse Oximetry 97 98 100 05/21/21 17:00 05/21/21 18:00 05/21/21 19:00 Temperature Pulse Rate 82 75 87 Respiratory Rate 18 18 22 Blood Pressure 138/63 133/58 119/56 O2 Sat by Pulse Oximetry 100 97 96 05/21/21 20:00 05/21/21 20:26 05/21/21 21:00 Temperature 99.3 F Pulse Rate 80 87 Respiratory Rate 21 18 24 Blood Pressure 134/63 138/65 O2 Sat by Pulse Oximetry 95 100 05/21/21 21:26 05/21/21 22:00 05/21/21 23:00 Temperature Pulse Rate 86 84 Respiratory Rate 18 22 18 Blood Pressure 145/79 163/82 O2 Sat by Pulse Oximetry 100 100 05/22/21 00:00 05/22/21 01:00 05/22/21 02:00 Temperature 98.5 F Pulse Rate 74 79 76 Respiratory Rate 16 17 17 Blood Pressure 177/84 173/83 182/91 O2 Sat by Pulse Oximetry 99 99 99 05/22/21 03:00 05/22/21 04:00 05/22/21 05:00 Temperature 98.4 F Pulse Rate 98 H 85 82 Respiratory Rate 21 23 18 Blood Pressure 165/78 160/72 167/77 O2 Sat by Pulse Oximetry 99 98 100 05/22/21 06:00 05/22/21 07:00 05/22/21 08:00 Temperature 98.0 F Pulse Rate 86 87 93 H Respiratory Rate 14 16 18 Blood Pressure 173/90 192/91 136/66 O2 Sat by Pulse Oximetry 98 100 100 05/22/21 08:27 05/22/21 09:00 05/22/21 09:27 Temperature Pulse Rate 94 H Respiratory Rate 18 18 18 Blood Pressure 174/79 O2 Sat by Pulse Oximetry 100 05/22/21 10:00 05/22/21 11:00 Temperature Pulse Rate 95 H 83 Respiratory Rate 18 17 Blood Pressure 134/76 131/72 O2 Sat by Pulse Oximetry 100 99 Labs: Laboratory Last Values WBC 8.6 X10^3/uL (3.6-10.0) 05/22/21 04:00 RBC 3.02 X10^6/uL (4.7-6.0) L 05/22/21 04:00 Hgb 8.8 g/dL (13.5-18.0) L 05/22/21 04:00 Hct 25.8 % (42.0-54.0) L 05/22/21 04:00 MCV 85.6 fL (80.0-100.0) 05/22/21 04:00 MCH 29.2 pg (27.0-34.0) 05/22/21 04:00 MCHC 34.2 g/dL (33.0-35.0) 05/22/21 04:00 RDW 16.4 % (11.6-16.5) 05/22/21 04:00 Plt Count 339 X10^3/uL (150.0-450.0) 05/22/21 04:00 MPV 6.3 fL (7.4-11.0) L 05/22/21 04:00 Neut % (Auto) 68.9 % (42.0-75.0) 05/22/21 04:00 Lymph % (Auto) 18.0 % (21.0-51.0) L 05/22/21 04:00 [place] % (Auto) 11.9 % (0.0-13.0) 05/22/21 04:00 Eos % (Auto) 0.8 % (0.9-2.9) L 05/22/21 04:00 Baso % (Auto) 0.4 % (0.2-1.0) 05/22/21 04:00 Neut # (Auto) 6.0 x10^3/uL (2.2-4.8) H 05/22/21 04:00 Lymph # (Auto) 1.6 X10^3/uL (1.3-2.9) 05/22/21 04:00 [place] # (Auto) 1.0 x10^3/uL (0.3-0.8) H 05/22/21 04:00 Eos # (Auto) 0.1 x10^3/uL (0.0-0.2) 05/22/21 04:00 Baso # (Auto) 0.0 X10^3/uL (0.0-0.1) 05/22/21 04:00 Absolute Nucleated RBC 0.0 /100WBC 05/22/21 04:00 PT 17.4 SECONDS (11.8-14.3) 05/17/21 08:59 INR Target Range - 05/17/21 08:59 INR 1.50 (0.8-1.3) H 05/17/21 08:59 APTT 54.7 SECONDS (22.9-36.5) H 05/17/21 08:59 PTT Comment - 05/17/21 08:59 D-Dimer 1.05 ug/ml (0.0-0.57) H* 05/17/21 08:59 Sodium 141 mmol/L (136-145) 05/22/21 04:00 Corrected Sodium TNP 05/22/21 04:00 Potassium 3.6 mmol/L (3.5-5.1) 05/22/21 04:00 Chloride 107 mmol/L (98-107) 05/22/21 04:00 Carbon Dioxide 27.1 mmol/L (21-32) 05/22/21 04:00 BUN 9 mg/dL (7-18) 05/22/21 04:00 Creatinine 0.54 mg/dL (0.70-1.30) L 05/22/21 04:00 Est GFR (MDRD) Af Amer > 60 (>60) 05/22/21 04:00 Est GFR (MDRD) Non-Af > 60 (>60) 05/22/21 04:00 Glucose 76 mg/dL (65-99) 05/22/21 04:00 POC Glucose (mg/dL) 118 mg/dL (65-99) H 05/21/21 19:23 Lactic Acid 1.0 mmol/L (0.4-2.0) 05/17/21 09:26 Calcium 7.7 mg/dL (8.5-10.1) L 05/22/21 04:00 Corrected Calcium 9.6 mg/dL (8.5-10.1) 05/18/21 04:00 Magnesium 1.9 mg/dL (1.7-2.9) 05/18/21 04:00 Iron 22 ug/dL (50-175) L 05/18/21 04:00 Transferrin 118 mg/dL (202-364) L 05/18/21 04:00 Ferritin 503 ng/mL (26-388) H 05/18/21 04:00 Total Bilirubin 0.40 mg/dL (0.2-1.0) 05/18/21 04:00 AST 23 Units/L (15-37) 05/18/21 04:00 ALT 11 Units/L (12-78) L 05/18/21 04:00 Alkaline Phosphatase 83 Units/L (46-116) 05/18/21 04:00 Creatine Kinase 84 Units/L (39-308) 05/17/21 22:24 CK-MB (CK-2) < 1.0 ng/mL (0-4.0) 05/17/21 22:24 CK/CKMB % Calc 1.2 % (<4) 05/17/21 22:24 Troponin I High Sens 24.0 ng/L (4.0-60.0) 05/17/21 22:24 Total Protein 6.6 g/dL (6.4-8.2) 05/18/21 04:00 Albumin 1.7 g/dL (3.4-5.0) L 05/18/21 04:00 Globulin 4.9 g/dL (2.5-4.5) H 05/18/21 04:00 Albumin/Globulin Ratio 0.3 Ratio (1.1-2.1) L 05/18/21 04:00 Triglycerides 63 mg/dL (0-150) 05/18/21 04:00 Cholesterol 130 mg/dL (0-200) 05/18/21 04:00 LDL Cholesterol, Calc 77 mg/dL (0-100) 05/18/21 04:00 HDL Cholesterol 40 mg/dL (40-60) 05/18/21 04:00 Cholesterol/HDL Ratio 3.3 (0.0-5.0) 05/18/21 04:00 Vitamin B12 309 pg/mL (193-986) 05/18/21 04:00 Folate 7.9 ng/mL (>8.6) L 05/18/21 04:00 TSH 3rd Generation 0.594 uIU/mL (0.358-3.74) 05/17/21 09:26 Specimen Type Catherized urine 05/17/21 15:15 Urine Color Liliana (YELLOW) 05/17/21 15:15 Urine Appearance Clear (CLEAR) 05/17/21 15:15 Urine pH 6.0 (5.0 - 8.0) 05/17/21 15:15 Ur Specific [place] 1.015 (1.000-1.030) 05/17/21 15:15 Urine Protein 2+ (NEGATIVE) 05/17/21 15:15 Urine Glucose (UA) Negative (NEGATIVE) 05/17/21 15:15 Urine Ketones 2+ (NEGATIVE) 05/17/21 15:15 Urine Occult Blood 1+ (NEGATIVE) 05/17/21 15:15 Urine Nitrite Negative (NEGATIVE) 05/17/21 15:15 Urine Bilirubin Negative (NEGATIVE) 05/17/21 15:15 Urine Urobilinogen 2+ (NORMAL) 05/17/21 15:15 Ur Leukocyte Esterase Negative (NEGATIVE) 05/17/21 15:15 Urine RBC 3-5 /HPF (0-3) A 05/17/21 15:15 Urine WBC 3-5 /HPF (0-5) 05/17/21 15:15 Ur Squamous Epith Cells Rare /HPF (NEGATIVE) 05/17/21 15:15 Urine Bacteria Trace /HPF (NEGATIVE) 05/17/21 15:15 Urine Sperm Rare /HPF (NEGATIVE) 05/17/21 15:15 Ur Culture Indicated? No/not indicated 05/17/21 15:15 Digoxin 0.39 ng/mL (0.9-2) L 05/17/21 09:26 SARS CoV-2 RNA Rapid GIBSON Negative (NEGATIVE) 05/17/21 10:29 Blood Type A POSITIVE 05/20/21 10:13 Antibody Screen Negative 05/20/21 10:13 Crossmatch See Detail 05/20/21 10:13 Reason For Visit: PSVT, UNCONTROLLED HTN, DM, A FIB., CAD Discharge Date Discharge Date: 05/22/21 Discharge Diagnosis All Active Problems (Updated 05/23/21 @ 15:56 by Niki Thompson) Schizophrenia (Chronic) Sacral wound (Chronic) S/P bilateral above knee amputation (Chronic) Anemia (Chronic) Atrial fibrillation with rapid ventricular response (Acute) DJD (degenerative joint disease) (Chronic) Benign enlargement of prostate (Chronic) Uncontrolled hypertension (Acute) Diabetes mellitus (Chronic) Atrial fibrillation (Chronic) Plan of Treatment: Continue with present treatment and follow up plan. Pt is to keep follow up appointment as instructed and take medications as ordered. Discharge Medications Discharge Medications: No Known Drug Allergies Allergy (Verified 12/21/19 12:19) CONTINUE taking the following medications apixaban [Eliquis] 5 mg PO BID 05/17/21 [History] clopidogrel 75 mg PO DAILY 05/17/21 [History] digoxin 125 mcg PO DAILY 05/17/21 [History] fluphenazine HCl 10 mg PO BID 05/17/21 [History] hydralazine 100 mg PO DAILY 05/17/21 [History] lisinopril 20 mg PO DAILY 05/17/21 [History] multivitamin [One-A-Day Essential] 1 tab PO QAM 05/17/21 [History] risperidone 0.5 mg PO BID 05/17/21 [History] New Prescriptions amiodarone [Pacerone] 200 mg PO BIDWM 10 Days #20 tab 05/22/21 [Rx] cephalexin 500 mg PO BID 7 Days #14 cap 05/22/21 [Rx] diltiazem HCl 240 mg PO DAILY 30 Days #30 cap 05/22/21 [Rx] doxycycline hyclate 100 mg PO BID 7 Days #14 cap 05/22/21 [Rx] folic acid 1 mg PO DAILY 30 Days #30 tab 05/22/21 [Rx] hydralazine 50 mg PO BID 30 Days #120 tab 05/22/21 [Rx] metformin 1,000 mg PO DAILYWB 30 Days #30 tab 05/22/21 [Rx] Follow up and Referral Follow Up: 1 Week (PCP) Discharge Disposition Assessment: No acute distress noted at discharge. Discharge Disposition: Home Discharge Condition: Stable Discharge Plan Discharge Plan Hospital Course: Mr Sanchez is a 66y/o male with a PMH of diabetes, atrial fibrillation, bilateral above knee amputation, HTN and mood disorder presented due to elevated HR. Patient's home health nurse noticed patient's HR to be elevated so he was sent to the ER. Patient is not able to provide any history. He answered some direct questions by nodding head or saying yes/no. Patient's history was obtained from patient's . She states he has been doing well and not feeling sick. He did see wound care on Saturday for his sacral wound and was told it is looking better. She states it has been draining and has a foul odor. Patient has had this wound for a while now and sees wound care in [place]. In the ER, patient was noted to be in atrial fibrillation with RVR. He was given multiple doses of cardizem and digoxin. He was started on Cardizem drip. He was admitted to ICU for further management. Dr Zapata with cardiology was consulted and he increased patient's dose of digoxin and diltiazem. He also ordered d-dimer and echo. Patient's d-dimer was elevated so CTA was done which was negative for PE. His cardiac enzymes were negative. His cardizem drip was weaned off but then had to be restarted as patient's HR remained above 100. He was started on amiodarone and digoxin was stopped. Wound culture was also obtained and patient was started on IV antibiotics. His Cx grew Proteus. Dressing changes were done daily as needed. Patient's labs were monitored daily and electrolytes replaced as needed. Patient's was updated about treatment plan. ECHO showed mild pulmonary HTN with EF 58%. Patient denies chest pain, palpitations or SOB. He was stable for discharge. He will follow up with PCP, cardiology and wound care. Patient Disposition: HOME HEALTH SERVICE Condition: Stable Health Concerns: Post Hospitalization: new medications and changes needed to prevent readmission or further decline. Pt educated and given instructions on all concerns. Care Plan Goals: Problem: Infection Goal: Temperature within normal limits. Resolved infection. Instructions: Follow provided instructions. Follow up with primary physician as directed. Contact primary care physician or report to the closest Emergency Room if condition worsens. Plan of Treatment: Continue with present treatment and follow up plan. Pt is to keep follow up appointment as instructed and take medications as ordered. Assessment: No acute distress noted at discharge. Prescription drug monitoring program results: PDMP reviewed and no concerns identified Prescriptions: New hydralazine 25 mg Tablet 50 mg PO BID 30 Days Qty: 120 RF: 1 metformin 1,000 mg tablet 1,000 mg PO DAILYWB 30 Days Qty: 30 RF: 1 amiodarone [Pacerone] 200 mg Tablet 200 mg PO BIDWM 10 Days Qty: 20 RF: 0 diltiazem HCl 240 mg Capsule,Extended Release 24hr 240 mg PO DAILY 30 Days Qty: 30 RF: 1 folic acid 1 mg Tablet 1 mg PO DAILY 30 Days Qty: 30 RF: 1 doxycycline hyclate 100 mg Capsule 100 mg PO BID 7 Days Qty: 14 RF: 0 cephalexin 500 mg capsule 500 mg PO BID 7 Days Qty: 14 RF: 0 Continued divalproex 500 mg Tablet,Delayed Release (Dr/Ec) 1,000 mg PO HS RF: 0 clopidogrel 75 mg tablet 75 mg PO DAILY RF: 0 fluphenazine HCl 10 mg tablet 10 mg PO BID RF: 0 lisinopril 20 mg tablet 20 mg PO DAILY RF: 0 risperidone 0.5 mg tablet 0.5 mg PO BID RF: 0 Eliquis 5 mg tablet 5 mg PO BID RF: 0 multivitamin [One-A-Day Essential] Tablet 1 tab PO QAM RF: 0 Discontinued Metformin HCl 1,000 MG Tab 1,000 mg PO BID RF: 0 glipizide 5 mg Tablet 5 mg PO DAILY RF: 0 diltiazem HCl 90 mg Tablet 60 mg PO BID RF: 0 hydralazine 100 mg tablet 100 mg PO DAILY RF: 0 digoxin 125 mcg (0.125 mg) tablet 125 mcg PO DAILY RF: 0 Follow ups/Referrals Follow ups/Referrals: Brady Zapata [STAFF PHYSICIAN] - 1 WEEK (Referral faxed to [phone] to [facility] to set up appointment for new patient.) Ellen Walls [Primary Care Provider] - 05/30/21 9:00 am (Dr Thompson - hospital follow up Tele visit ) Niki Thompson [STAFF PHYSICIAN] - 1 WEEK Instructions Instructions: Wound Infection, [id number], How to Change Your Wound Dressing, [id number], Antibiotic Medicine, Adult, Form - Daily Diabetes Record, You've Been Prescribed an Antibiotic in the Hospital for an Infection - CDC, Managing Your Hypertension, Blood Glucose Monitoring, Adult, Atrial Fibrillation, [id number] Activity Restrictions/Additional Instructions: Stop Digoxin and glipizide Check finger stick glucose daily Patient will take Amiodarone 200 mg twice a day for 10 more days. Then switch to Amiodarone 100 mg twice a day. Follow up with cardiology and primary care as scheduled Diltiazem increased to 240 mg ER daily Follow up with wound care as scheduled in [place] Stand Alone Forms: Precautions for [address], Patient Portal, Social Distancing
[2021-05-22 14:02] VITALS: BP 132/79
== END 2021-05-22 15:00 | disposition home health service (06) | DRG 309 ==
LOC: ER 08:49 → ICU 10:46
PROVIDERS: ADMIT Internal Medicine; ATTEND Internal Medicine
DX: E78.49 Other hyperlipidemia; Z89.521 Acquired absence of right knee; I48.91 Unspecified atrial fibrillation; R07.89 Other chest pain; F20.9 Schizophrenia, unspecified; B96.4 Proteus (mirabilis) (morganii) as the cause of diseases classified elsewhere; E11.9 Type 2 diabetes mellitus without complications; B96.20 Unspecified Escherichia coli [E. coli] as the cause of diseases classified elsewhere; Z20.822 Contact with and (suspected) exposure to COVID-19; R26.2 Difficulty in walking, not elsewhere classified; D64.9 Anemia, unspecified; R10.9 Unspecified abdominal pain; L89.159 Pressure ulcer of sacral region, unspecified stage; Z89.522 Acquired absence of left knee; B95.2 Enterococcus as the cause of diseases classified elsewhere; D68.9 Coagulation defect, unspecified; R06.02 Shortness of breath